=== PATIENT | female | born 1985 | race Caucasian/White ===

== ENCOUNTER 2016-02-29 17:13 | Inpatient (IN) | payer OTHER ==
[~2016-02-29] VITALS: Ht 157.5 cm; Wt 99.5 kg
[2016-02-29 17:58] VITALS: BMI 40.1
[2016-02-29 18:03] VITALS: Ht 157.5 cm; Wt 99.5 kg
[2016-02-29 18:55] LABS: HEMATOCRIT 34.3 % (37-47); MEAN CELL VOLUME 89.3 fL (80-100); MEAN CORPUSCULAR HGB CONC 34.7 g/dl (32-36); MEAN PLATELET VOLUME 9.9 fL (7.4-10.4); PLATELET COUNT 219 K/uL (130-400); RED BLOOD COUNT 3.84 M/uL (4.2-5.4); WHITE BLOOD COUNT 7.78 K/uL (4.8-10.8)
[2016-02-29 19:01] LABS: URINE APPEARANCE CLOUDY (CLEAR); URINE BILIRUBIN NEG (NEG); URINE COLOR YELLOW; URINE EPITHELIAL CELL AUTO >30 /lpf (0-5); URINE NITRITE NEG (NEG); URINE PH 6.5 (4.5-7.5); URINE SPECIFIC GRAVITY 1.026 (1.000-1.030); UROBILINOGEN NEG (NEG)
[2016-02-29 19:04] LABS: MANUAL MICROSCOPIC REQUIRED? NO; REVIEW REQ? NO
[2016-02-29 19:05] LABS: INR 0.9 (0.9-1.1); PARTIAL THROMBOPLASTIN RATIO 0.9; PROTHROMBIN TIME (PATIENT) 9.5 SECONDS (9.0-12.0)
[2016-02-29] MEDS ORDERED: PRENTAB26 PO (19:10)
[2016-02-29 19:11] LABS: BUN/CREATININE RATIO 18.2 (10-20); CALCIUM 9.2 mg/dl (8.5-10.1); CREATININE 0.51 mg/dl (0.60-1.20); POTASSIUM 3.6 mmol/L (3.5-5.1)
[2016-02-29 19:13] LABS: BENZODIAZEPINE, URINE NEG (NEG); COCAINE,URINE NEG (NEG); PHENCYCLIDINE, URINE NEG (NEG)
[2016-02-29 19:14] LABS: ALB/GLOB RATIO 0.6 (0.9-2)
[2016-03-01] MEDS: LACTATED RINGER'S 1000ML 500 ML IV PRN ×2 (08:30→13:37)
[2016-03-01] MEDS: OXYTOCIN 30 UNITS/500ML NSS IV PRN ×2 (08:31→23:23)
[2016-03-01] MEDS ORDERED: EpHEDrine SULFATE INJ 50 MG/ML AMP ONE (12:51)
[2016-03-01] MEDS ORDERED: FENTANYL 2MCG/ML ROPIV 1.25MG/ML 100ML BAG EPI ONE (12:51)
[2016-03-01] MEDS ORDERED: BUPIVACAINE 0.25% 30 ML VIAL ONE (12:51)
[2016-03-01] MEDS ORDERED: FENTANYL CITRATE INJ 50 MCG/1 ML 2 ML VIAL ONE (12:52)
[2016-03-01] MEDS ORDERED: NALOXONE HCL INJ 1 MG in SODIUM CHLORIDE 0.9% 1000ML 1,000 ML IV PRN (13:12)
[2016-03-01] MEDS ORDERED: LACTATED RINGER'S 1000ML 500 ML IV PRN (13:12)
[2016-03-01] MEDS ORDERED: EpHEDrine SULFATE INJ 50 MG/ML AMP IV PRN (13:15)
[2016-03-01] MEDS ORDERED: ONDANSETRON INJ 2 MG/ML 2 ML VIAL IV PRN (13:15)
[2016-03-01] MEDS ORDERED: NALBUPHINE HCL INJ 10 MG/ML AMP IV PRN (13:15)
[2016-03-01] MEDS ORDERED: NALOXONE HCL INJ 0.4 MG/1 ML VIAL/CARP IV PRN (13:15)
[2016-03-01] MEDS ORDERED: DiphenhydrAMINE HCL 50 MG/ML VIAL IV PRN (13:15)
[2016-03-01] MEDS: FENTANYL 2MCG/ML ROPIV 1.25MG/ML 100ML BAG EPI PRN ×2 (13:38→15:03)
[2016-03-01] MEDS ORDERED: ACETAMINOPHEN 500 MG TAB PO STA (18:03)
[2016-03-01] MEDS ORDERED: LACTATED RINGER'S 1000ML 1,000 ML IV SCH (20:13)
[2016-03-01] MEDS ORDERED: SUPERCREAM 0.870 % 15GM JAR EXT PRN (23:30)
[2016-03-01] MEDS ORDERED: IBUPROFEN 600 MG TAB PO PRN (23:30)
[2016-03-01] MEDS ORDERED: HYDROCORTISONE ACETATE 25 MG SUPP PR PRN (23:30)
[2016-03-01] MEDS ORDERED: OXYCODONE/ACETAMINOPHEN 5-325 TAB PO PRN (23:30)
[2016-03-01] MEDS ORDERED: BENZOCAINE 20% AER SPR 82.5 GM CAN EXT PRN (23:30)
[2016-03-01] MEDS ORDERED: OXYTOCIN 30 UNITS/500ML NSS IV PRN (23:30)
[2016-03-01] MEDS ORDERED: LANOLIN OINT EXT PRN ×2 (23:30)
[2016-03-02 02:45] VITALS: BP 131/91; PULSE 102; TEMP 36.8
[2016-03-02 05:20] VITALS: BP 137/90; PULSE 99; TEMP 36.8
--- NOTE | 2016-03-02 06:25 | Progress Note ---
Subjective Mar 02, 2016. Subjective conversation w/ patient, physical exam Ambulation: ambulating normally Voiding: no voiding problems Passing Gas: No Diet Tolerance: Regular Diet Lochia: Small Feeding Type: Breast Feeding Pain: No complaints of pain this morning Review of Systems Constitutional: No chills, No fever Respiratory: No cough, No shortness of breath Cardiac: No chest pain Breast: No breast pain Abdomen: No nausea, No pain, No vomiting Female : No dysuria Objective Vital Signs Date Time Temp Pulse Resp B/P Pulse Ox O2 Delivery O2 Flow Rate FiO2 03/02/16 05:20 36.8 99 18 137/90 Room Air 03/02/16 02:45 36.8 102 18 131/91 Room Air 03/02/16 02:45 Room Air Physical Exam General Appearance: WELL-APPEARING, WD/WN, NO APPARENT DISTRESS Respiratory/Chest: lungs clear, no respiratory distress Cardiovascular: regular rate, rhythm, no gallop, no murmur Abdomen: normal bowel sounds, non tender, soft Fundus: Firm, Relation to Umbilicus (At umbilicus) Extremities: no calf tenderness Laboratory Results Last 24 Hours Test 03/01/16 21:10 03/02/16 04:44 Bedside Glucose 87 mg/dl Medications Current Inpatient Medications Medications (Trade) Dose Ordered Sig/Carlton Route Start Time Stop Time Status Last Admin Dose Admin Lactated Ringer's 500 ml @ 999 mls/hr Q31M PRN IV 03/01/16 07:50 03/31/16 07:49 03/01/16 13:37 999 MLS/HR Lactated Ringer's (Lr 1000ml) 1,000 ml @ 125 mls/hr Q8H IV 03/01/16 20:13 03/03/16 20:12 03/01/16 21:00 125 MLS/HR Oxytocin (Pitocin IV) 30 units UD PRN IV 03/01/16 23:30 03/31/16 23:29 Benzocaine (Dermoplast Aero Spr) 1 appln PRN PRN EXT 03/01/16 23:30 03/31/16 23:29 Cocaine HCl (Supercream 0.870% Cr) BID PRN EXT 03/01/16 23:30 03/15/16 23:29 Hydrocortisone Acetate (Anusol Hc Supp) 25 mg BID PRN ME 03/01/16 23:30 03/31/16 23:29 Lanolin (Lanolin Oint) PRN PRN EXT 03/01/16 23:30 03/31/16 23:29 Ibuprofen (Motrin Tab) 600 mg Q4H PRN PO 03/01/16 23:30 03/31/16 23:29 Oxycodone/ Acetaminophen (Percocet 5-325MG Tab) 1 tab Q4H PRN PO 03/01/16 23:30 03/15/16 23:29 Bisacodyl (Dulcolax Tab) 5 mg 20 PO 03/02/16 20:00 03/02/16 20:01 Docusate Sodium (coLACE CAP) 100 mg BID PO 03/02/16 08:00 04/01/16 07:59 Assessment and Plan Post- Day#: 1 Continue Routine Care: - Vital Signs reviewed and WNL (temp max 36.8) - Blood Type: B+, GBS- , Rubella Immune - Patient doing well clinically - Encourage Ambulation today - Pain well controlled with Motrin - Tolerating PO diet Resident Physician Supervision Note: I was present with Dr. Mathur during the history and exam. I discussed the case with the resident and agree with the findings and plan as documented in the note. Any exceptions or clarifications are listed here: PPD#1, feeling well. Denies headache/vision changes/RUQ pain. BP's 130's/90's. Continue routine care. Documented By: Eboni Hammer
--- NOTE | 2016-03-02 06:30 | Medical Student: [facility] ---
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 Patient is a 30 year old WF who delivered an infant male yesterday evening via with Dr. Hammer. She initially presented on 02/29/16 for evaluation of preeclampsia (BP was 150/90 and 2+ urine protein) and was told that she would be induced. She underwent pabon bulb placement in the uterus, and on 03/01/16 was induced with Pitocin. At 2300 she delivered a viable male Apgars 8/9. There were no complications. The patient feels well today and states she is not having any significant pain. She is having some difficulty with and keeping the infant awake long enough to feed. She has been tolerating a normal diet but has not passed gas or had a bowel movement. She has been ambulating and voiding. She says she has some mild vaginal leakage of blood. She was able to sleep some last night. She denies nausea, vomiting, chest pain, shortness of breath, or tenderness in her calves. The 's name is Chance. Subjective conversation w/ patient, physical exam, chart review, lab review Ambulation: ambulating normally Voiding: no voiding problems Passing Gas: No Diet Tolerance: Regular Diet Lochia: Moderate Feeding Type: Breast Feeding Review of Systems Constitutional: No fever Respiratory: No cough Cardiac: No chest pain Abdomen: No pain Female : No dysuria Objective Vital Signs Date Time Temp Pulse Resp B/P Pulse Ox O2 Delivery O2 Flow Rate FiO2 03/02/16 05:20 36.8 99 18 137/90 Room Air 03/02/16 02:45 36.8 102 18 131/91 Room Air 03/02/16 02:45 Room Air Physical Exam General Appearance: WELL-APPEARING, WD/WN, NO APPARENT DISTRESS Respiratory/Chest: chest non-tender, lungs clear, normal breath sounds Cardiovascular: regular rate, rhythm, no edema Fundus: Firm, Relation to Umbilicus (at umbilicus) Extremities: normal range of motion, non-tender, normal inspection, no pedal edema, no calf tenderness Laboratory Results Last 24 Hours Test 03/01/16 21:10 03/02/16 04:44 Bedside Glucose 87 mg/dl Last Resulted CBC 02/29/16 18:34 Last Resulted BMP 02/29/16 18:34 Medications Current Inpatient Medications Medications (Trade) Dose Ordered Sig/Carlton Route Start Time Stop Time Status Last Admin Dose Admin Lactated Ringer's 500 ml @ 999 mls/hr Q31M PRN IV 03/01/16 07:50 03/31/16 07:49 03/01/16 13:37 999 MLS/HR Lactated Ringer's (Lr 1000ml) 1,000 ml @ 125 mls/hr Q8H IV 03/01/16 20:13 03/03/16 20:12 03/01/16 21:00 125 MLS/HR Oxytocin (Pitocin IV) 30 units UD PRN IV 03/01/16 23:30 03/31/16 23:29 Benzocaine (Dermoplast Aero Spr) 1 appln PRN PRN EXT 03/01/16 23:30 03/31/16 23:29 Cocaine HCl (Supercream 0.870% Cr) BID PRN EXT 03/01/16 23:30 03/15/16 23:29 Hydrocortisone Acetate (Anusol Hc Supp) 25 mg BID PRN DC 03/01/16 23:30 03/31/16 23:29 Lanolin (Lanolin Oint) PRN PRN EXT 03/01/16 23:30 03/31/16 23:29 Ibuprofen (Motrin Tab) 600 mg Q4H PRN PO 03/01/16 23:30 03/31/16 23:29 Oxycodone/ Acetaminophen (Percocet 5-325MG Tab) 1 tab Q4H PRN PO 03/01/16 23:30 03/15/16 23:29 Bisacodyl (Dulcolax Tab) 5 mg 20 PO 03/02/16 20:00 03/02/16 20:01 Docusate Sodium (coLACE CAP) 100 mg BID PO 03/02/16 08:00 04/01/16 07:59 Assessment and Plan Post- Day Number: 1 Continue Routine Care: This is a 30 y/o WF who delivered a viable male on 03/01/16. Plan: Continue routine care. Encourage ambulation as patient is at risk of VTE in the post period. Continue diet as tolerated. The patient is not a Rhogam candidate as her blood type is B+. The patient is Rubella immune.
[2016-03-02 06:41] LABS: HEMATOCRIT 32.7 % (37-47)
--- NOTE | 2016-03-02 07:09 | DELIVERY SUMMARY ---
DATE OF OPERATION: 03/01/2016 DELIVERY SURGEON: Dr. Hammer. PRE-DELIVERY DIAGNOSIS: 1. 30-year-old at 38 weeks and 2 days. 2. Induction of labor secondary to preeclampsia. 3. Diet-controlled gestational diabetes. 4. History of THC use in early with negative testing upon admission. POST-DELIVERY DIAGNOSIS: Same. PROCEDURE: Spontaneous vaginal delivery and repair of first degree perineal tear and periclitoral laceration. COMPLICATIONS: None. ESTIMATED BLOOD LOSS: 300 mL. APGARS: 8 and 9. WEIGHT: Pending. DESCRIPTION OF DELIVERY: The patient progressed to complete with epidural analgesia and spontaneously delivered over an intact perineum a viable male in the RON position. The head delivered. No nuchal cord was noted. The anterior shoulder followed by the posterior shoulder followed by the body delivered spontaneously. The baby was warmed and dried and spontaneous cry was heard. The was placed on the mother's abdomen. The cord was doubly clamped and cut. A cord segment was retained for cord gas collection if needed. Cord blood was obtained. The placenta was delivered spontaneously intact with a 3-vessel cord. A marginal insertion of the cord was noted. Pitocin was given. The uterus became firm. The vagina and perineum were inspected and a right periclitoral tear in the labia minora was noted. Plain Lidocaine 1% was injected locally for anesthetic purposes. This was repaired with interrupted stitches of 3-0 Vicryl to reapproximate the tissue. Excellent hemostasis was noted. A first degree perineal laceration was reapproximated using a [id number] stitch. Again excellent hemostasis was noted with this. The uterus and vagina were swept of all clots and debris. All instrument, sponge and needle counts were correct x2 at the conclusion of the delivery. The patient and baby tolerated the delivery well and recovered in the room. I attest to the content of the Intraoperative Record and any orders documented therein. Any exceptions are noted below. MTDD
[2016-03-02 08:00] VITALS: BP 139/94; PULSE 106; TEMP 36.5
[2016-03-02] MEDS: DOCUSATE SODIUM 100 MG CAP PO SCH ×2 (08:26→19:53)
[2016-03-02 12:10] VITALS: BP 148/98; PULSE 112; TEMP 36.3
[2016-03-02 15:35] VITALS: BP 127/88; PULSE 98; TEMP 36.7
[2016-03-02 19:40] VITALS: BP 135/90; PULSE 108; TEMP 36.8
[2016-03-02] MEDS ORDERED: BISACODYL 5 MG TABEC PO SCH (20:00)
[2016-03-03] VITALS: BP 136/83; PULSE 90; TEMP 36.7
--- NOTE | 2016-03-03 06:35 | Progress Note ---
Subjective Mar 03, 2016. Subjective conversation w/ patient, physical exam Ambulation: ambulating normally Voiding: no voiding problems Passing Gas: Yes Diet Tolerance: Regular Diet Lochia: Small Feeding Type: Breast Feeding Pain: No pain reported Review of Systems Constitutional: No chills, No fever Respiratory: No cough, No shortness of breath Cardiac: No chest pain Breast: No breast pain Abdomen: No nausea, No pain, No vomiting Female : No dysuria Objective Vital Signs Date Time Temp Pulse Resp B/P Pulse Ox O2 Delivery O2 Flow Rate FiO2 03/03/16 00:00 Room Air 03/03/16 00:00 36.7 90 18 136/83 Room Air 03/02/16 19:40 36.8 108 18 135/90 Room Air 03/02/16 15:35 Room Air 03/02/16 15:35 36.7 98 20 127/88 Room Air 03/02/16 12:10 36.3 112 20 148/98 03/02/16 08:00 36.5 106 18 139/94 Physical Exam General Appearance: WELL-APPEARING, WD/WN, NO APPARENT DISTRESS Respiratory/Chest: lungs clear, no respiratory distress Cardiovascular: regular rate, rhythm, no gallop, no murmur Abdomen: normal bowel sounds, non tender, soft Fundus: Relation to Umbilicus (At umbilicus) Extremities: no calf tenderness Medications Current Inpatient Medications Medications (Trade) Dose Ordered Sig/Carlton Route Start Time Stop Time Status Last Admin Dose Admin Lactated Ringer's 500 ml @ 999 mls/hr Q31M PRN IV 03/01/16 07:50 03/31/16 07:49 03/01/16 13:37 999 MLS/HR Lactated Ringer's (Lr 1000ml) 1,000 ml @ 125 mls/hr Q8H IV 03/01/16 20:13 03/03/16 20:12 03/01/16 21:00 125 MLS/HR Oxytocin (Pitocin IV) 30 units UD PRN IV 03/01/16 23:30 03/31/16 23:29 Benzocaine (Dermoplast Aero Spr) 1 appln PRN PRN EXT 03/01/16 23:30 03/31/16 23:29 03/02/16 08:27 82.5 APPLN Cocaine HCl (Supercream 0.870% Cr) BID PRN EXT 03/01/16 23:30 03/15/16 23:29 Hydrocortisone Acetate (Anusol Hc Supp) [address] 03/01/16 23:30 03/31/16 23:29 Lanolin (Lanolin Oint) PRN PRN EXT 03/01/16 23:30 03/31/16 23:29 Ibuprofen (Motrin Tab) 600 mg Q4H PRN PO 03/01/16 23:30 03/31/16 23:29 Oxycodone/ Acetaminophen (Percocet 5-325MG Tab) 1 tab Q4H PRN PO 03/01/16 23:30 03/15/16 23:29 Docusate Sodium (coLACE CAP) 100 mg BID PO 03/02/16 08:00 04/01/16 07:59 03/02/16 19:53 100 MG Assessment and Plan Post- Day#: 2 Continue Routine Care: - Vital Signs reviewed and WNL (temp max 36.7) - Blood Type: B+, GBS- , Rubella Immune - Patient doing well clinically - Encourage Ambulation today - Pain well controlled with Motrin - Tolerating PO diet - Discharge today Resident Physician Supervision Note: I interviewed and examined the patient. Discussed with Dr. Mathur and agree with findings and plan as documented in the note. Any exceptions or clarifications are listed here: [None] Documented By: Rakesh Stephen
--- NOTE | 2016-03-03 06:37 | Discharge Instructions ---
Discharge Instructions Admission Reason for Admission: R/O Preeclampsia Discharge Discharge Diagnosis / Problem: Vaginal Delivery Discharge Goals Goal(s): Routine recovery after delivery Medications Continue Dispensed Medications: supercream, dermaplast, tucks, lansinoh Activity Recommendations Activity Limitations: per Instructions/Follow-up section . Instructions / Follow-Up Instructions / Follow-Up ACTIVITY RECOMMENDATIONS: * Gradual return to full activity over the next 2-3 weeks. * No lifting - nothing heavier than baby over the next 2-3 weeks. * Do not engage in vigorous exercise, sexual activity or sports until cleared by your physician. * Do not drive or operate any motorized equipment until cleared by your physician. * You may shower/bathe daily. MEDICATIONS: For discomfort or pain, you may use Acetaminophen (Tylenol), Ibuprofen (Advil), or Naproxen (Aleve) following the package directions. For constipation you may use Colace following the package directions. BREAST CARE: If you are not breast feeding: * Wear a supportive bra 24 hours a day for one to two weeks. * Avoid stimulating your breasts and nipples as much as possible during the first few weeks after delivery. * When taking a shower, have the warm water hit your back, not breasts. * When your breasts feel full, apply ice packs. Usually three to four times a day helps ease the discomfort. * Take a mild pain medication (Tylenol / Motrin) when you are uncomfortable. If breast feeding: * Use breast milk to lubricate nipples. Lansinoh cream may be used for sore nipples. You do not need to remove cream prior to breast feeding. If using a different brand of cream, check the label for directions regarding removal of cream prior to nursing. * Wear a supportive bra. * If having problems with breasts or breast feeding, call a decorating consultant or your health care provider. EPISIOTOMY CARE: After delivery, if you have an episiotomy (stitches), the following steps will ease discomfort and aid healing. * For the first 24 hours after delivery, place ice packs next to your episiotomy to help reduce swelling. * After the first 24 hour-period, sitz baths, either portable or in the tub, are suggested. A shower with a shower arm sprayed over the episiotomy may be comforting. * Марина care should be done after each voiding and bowel movement. Squirt warm water from a plastic bottle over the perineum (region of the body between the anus and urinary opening) and pat dry. * Use Dermoplast to ease discomfort. Shake container. [place] directly over the episiotomy. Place a Tucks on a clean sanitary pad next to your episiotomy. SPECIAL CARE INSTRUCTIONS: When you are discharged from the hospital, it is important for you to follow the instructions listed below: * During the first week at home, you should be able to care for yourself and your baby. In addition, the usual light household activities are encouraged. * Limit your activities to the way you feel. Do not try to clean the house or move furniture. Be sensible. * If you actively engage in sports and have done so up until the time of your delivery, you may resume these activities as soon as you feel able. This may take up to one month or even longer. Use good judgment. * Continue to take your vitamins for at least six weeks after the of your baby. * Your diet need not be limited unless you were on a special diet before your delivery. Breast-feeding mothers need around 2500 calories per day and at least 64-80 ounces of fluid per day (8 to 10 glasses). * You should eat foods from the four major food groups. Crash diets or fad diets are to be avoided. Eating lean meats, fresh fruits and vegetables, low-fat dairy products, high fiber foods and a regular exercise program, will help you get back to your pre- weight without putting your health at risk. * Constipation is sometimes a problem after delivery. Take a mild laxative as needed. If breast feeding, Milk of Magnesia is acceptable to use. You may use a suppository or Fleets enema if no episiotomy. * A daily shower or tub bath is suggested. Be sure to thoroughly and gently dry the perineum. * A bloody vaginal discharge will usually continue until around four weeks post . A small amount of bleeding may continue for as long as six weeks. Vaginal discharge changes from the bright red bleeding after delivery to pink then brownish and finally yellowish-pink before becoming white and disappearing. * Bleeding may increase with activity. Your first period may come in 4-8 weeks. If you are breast feeding, your period may be delayed even longer. * [place] (sex) can begin whenever both you and your partner feel comfortable and do not have any form of genital infection. It is recommended that you wait at least six weeks for internal and external healing to occur. If you have questions, please talk to your health care practitioner. A condom should be used to prevent infection and . * Foreplay, gentle intercourse and lubrication is very important the first several times to prevent pain. A water-based lubricant such as K-Y jelly or Astroglide may be used. * If you have RH negative blood and your baby is RH positive, you will receive RHOGAM by injection prior to discharge. The nurse will give you a card to keep with you that has the date and place that you received RHOGAM after delivery. * During your care, you had a Rubella screen done to check for the presence of rubella antibodies in your blood. If your test was negative, you will receive a Rubella vaccine prior to discharge. This vaccine may cause a fever, soreness at the injection site and flu-like symptoms. If these symptoms persist, notify your health care practitioner. is not advised for one month after a Rubella vaccine. * Verbalizes understanding of car seat law as reviewed with patient nursing. * Car Seat hand-out given and reviewed with patient by nursing. * Shaken baby information reviewed with patient by nursing. Call you doctor if: * Heavy bleeding (saturating several pads an hour) or passing clots the size of your fist. * A fever >101 degrees F (38.3 degrees C) on two occasions four hours apart and /or chills. * Unusual pain in the pelvic or vaginal areas. * "Baby Blues" lasting longer than two weeks. If you have any questions or concerns, call your health care practitioner at . FOLLOW UP VISIT: * Please call the office at to schedule a 6 week examination. It is important you keep this appointment. It is important for you to make arrangements for either yearly or twice yearly check-ups thereafter. Current Hospital Diet Patient's current hospital diet: Regular Diet Discharge Diet Recommended Diet: Regular Diet Pending Studies Studies pending at discharge: no Medical Emergencies . Who to Call and When: Medical Emergencies: If at any time you feel your situation is an emergency, please call 911 immediately. . Non-Emergent Contact Non-Emergency issues call your: Chief Mechanical Engineer . . "Provider Documentation" section prepared by Miguelito Mathur. VTE Core Measure Inpt VTE Proph given/why not?: Treatment not indicated
[2016-03-03 08:40] VITALS: BP 126/85; PULSE 89; TEMP 36.8; O2SAT 97
[2016-03-03] MEDS: DOCUSATE SODIUM 100 MG CAP PO SCH (09:04)
[2016-03-03 14:50] VITALS: BP_DIAS 85; PULSE 89; TEMP 36.8
== END 2016-03-03 14:50 | disposition home or self-care (01) | DRG 775 ==
LOC: C.LD 17:13 → C.OPB 17:13 → C.LD 20:17 → C.OBG 03-02 04:48
PROVIDERS: ADMIT Obstetrics & Gynecology; ATTEND Obstetrics & Gynecology
PROC: 0HQ9XZZ Repair Perineum Skin, External Approach (ICD-10-PCS; principal; 2016-03-01)
PROC: 10E0XZZ Delivery of Products of Conception, External Approach (ICD-10-PCS; principal; 2016-03-01)
PROC: 0U7C7ZZ Dilation of Cervix, Via Natural or Artificial Opening (ICD-10-PCS; principal; 2016-03-01)
DX: O14.94 Unspecified pre-eclampsia, complicating childbirth (principal); O70.0 First degree perineal laceration during delivery; O24.420 Gestational diabetes mellitus in childbirth, diet controlled; O69.89X0 Labor and delivery complicated by other cord complications, not applicable or unspecified; Z37.0 Single live birth; Z3A.38 38 weeks gestation of pregnancy; Z87.891 Personal history of nicotine dependence

== ENCOUNTER → 2017-09-24 | Outpatient (CLI) | payer OTHER ==
[~2017-09-24] MED LIST: PRENTAB26 PO
== END | disposition home or self-care (01) ==
LOC: C.LAB1850 11:04
PROVIDERS: ATTEND Obstetrics & Gynecology
DX: O24.419 Gestational diabetes mellitus in pregnancy, unspecified control (principal)

== ENCOUNTER 2018-03-05 08:08 | Inpatient (IN) ==
[2018-03-05] MEDS ORDERED: OXYTOCIN 30 UNITS/500 ML BAG IV PRN ×2 (12:43)
[2018-03-05] MEDS ORDERED: LACTATED RINGER'S 1,000 ML IV PRN ×3 (12:43→21:40)
[2018-03-05] MEDS ORDERED: PENICILLIN G POTASSIUM 6 MU in DEXTROSE 5% 250 ML IV ONE (13:00)
[2018-03-05 13:07] LABS: Hematocrit (blood only) 32.4 % (37-47); Hemoglobin 11.1 g/dL (12.0-16.0); Mean Corpuscular Volume 88.5 fL (80-100); Mean Platelet Volume 9.2 fL (7.4-10.4); Platelet Count 180 K/uL (130-400); RDW Coefficient of Variation 13.3 % (11.5-14.5); RDW Standard Deviation 42.3 fL (36.4-46.3); Red Blood Count 3.66 M/uL (4.2-5.4)
[2018-03-05 13:08] LABS: Mean Corpuscular Hgb Conc 34.3 g/dL (32-36)
[2018-03-05] MEDS: LACTATED RINGER'S 1,000 ML IV SCH ×2 (13:25→21:50)
[2018-03-05] MEDS ORDERED: INSULIN REGULAR 250 UNITS in SODIUM CHLORIDE 0.9% 247.5 ML IV PRN (13:37)
[2018-03-05] MEDS ORDERED: SODIUM CHLORIDE 0.9% 1000ML 1,000 ML IV PRN (13:37)
[2018-03-05] MEDS ORDERED: DEXTROSE 5% 1,000 ML IV SCH (13:45)
--- NOTE | 2018-03-05 14:42 | History & Physical Report ---
Date of Service March 05, 2018 Assessment & Plan (1) with 39 completed weeks gestation: fetus category one. plan pitocin induction. pcn for gbs. arom when indicated. epidural on demand. (2) Insulin controlled gestational diabetes mellitus (GDM) during : insulin protocol. History of Present Illness Chief Complaint: induction Primary Care Provider: NO PCP Patient is a 32yowf with iup at 39 weeks who presents to labor and delivery for induction for a2gdm. Patient notes no significant contractions, no vb, lof. Patient admitted to MJ use with a positive screen in the early . She denies any drug use currently. She is a gbs carrier. labs--B+/ab-/pap nl/ri/rprnr/hepb-/hiv-/gc/ct-/panorama neg/afp neg/gbs positive. Allergies Allergy/AdvReac Type Severity Reaction Status Date / Time No Known Allergies Allergy Verified 02/07/18 19:31 Home Medications Home Medications Medication Instructions Recorded Confirmed Type insulin NPH isoph U-100 human 30 units SUBCUT HS 02/07/18 03/05/18 History [Humulin N NPH U-100 Insulin] Patient History Medical History Anxiety Gestational diabetes Social History marital status: Single Current Living Situation: Significant Other Other Information That Helps Us Care for You: No Feels Safe at Home: Yes Safety Concerns: Feels Safe At This Time Smoking Status: Former smoker Smoking End Date: 2016 Hx Alcohol Use: No Hx Substance Use: Yes (QUIT WITH + HPT TEST) substance use type: marijuana Preferred Language: French Communication Ability: Effective OB History g1--03/14, , 6#7oz, 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
[2018-03-05 15:06] LABS: Amphetamines+Metham, Urine Neg (Neg); Barbiturates, Urine Neg (Neg); Benzodiazepine, Urine Neg (Neg); Cocaine, Urine Neg (Neg); MDMA (Ecstacy), Urine Neg (Neg); Methadone, Urine Neg (Neg); Opiate, Urine Neg (Neg); Phencyclidine, Urine Neg (Neg)
[2018-03-05] MEDS: PENICILLIN G POTASSIUM 3 MU in DEXTROSE 5% 100 ML IV PRN ×2 (17:35→22:05)
--- NOTE | 2018-03-05 18:08 | Labor Progress Brief Note ---
Date of Service March 05, 2018 Subjective noting some contractions. Assessment & Plan (1) with 39 completed weeks gestation: continue current management. fetus category one. (2) Insulin controlled gestational diabetes mellitus (GDM) during : continue insulin protocol. Physical Exam 2 Vital Signs (Past 24 Hours): Last Vital Signs Temp 36.6 C 03/05/18 13:39 Pulse 81 03/05/18 16:53 Resp 20 03/05/18 13:39 BP 121/77 03/05/18 16:53 Constitutional: WD/WN, vitals as above Genitourinary: cx--/-2 arom--clear toco--q2-5, pit at 9 efm--120s wtih mod variability, accels to 150s, no decels
[2018-03-05] MEDS ORDERED: BUPIVACAINE 0.25% 30 ML VIAL ONE (20:39)
[2018-03-05] MEDS ORDERED: fentaNYL 2MCG/ML ROPIV 1.25MG/ML 100 ML BAG EPI ONE (20:40)
[2018-03-05] MEDS ORDERED: fentaNYL citrate 100 MCG/2 ML VIAL ONE (20:40)
--- NOTE | 2018-03-05 21:39 | Anesthesiology Consultation ---
Date of Service March 05, 2018 Assessment & Plan (1) Encounter for pre-operative examination: Chart Review Chart Review: Patient NOT seen in Pre Admission Testing and Acceptable Risk for Labor Epidural Consults Requested none ASA ASA2 Proposed Anesthesia Anesthesia Type: Labor Epidural Risk / Benefits Reviewed With: PT / POA / Parent / Guardian, Accepts Plan and Informed Consent Obtained NPO Date Last Intake of Fluids: 03/05/18 Time Last Intake of Fluids: 21:38 Date Last Intake of Solids: 03/05/18 Time Last Intake of Solids: 11:00 History Height/Weight Height: 5 ft 2 in Weight: 93.44 kg Allergies Allergy/AdvReac Type Severity Reaction Status Date / Time No Known Allergies Allergy Verified 02/07/18 19:31 Medications Home Medications Medication Instructions Recorded Confirmed Last Taken insulin NPH isoph U-100 human 30 units SUBCUT HS 02/07/18 03/05/18 03/04/18 23: 00 [Humulin N NPH U-100 Insulin] Active Medications Generic Name Dose Route Start Last Admin Trade Name Freq PRN Reason Stop Dose Admin Lactated Ringer's 1,000 mls @ 999 mls/hr 03/05/18 12:43 03/05/18 20:53 Lr IV 04/04/18 12:42 999 mls/hr .Q1H1M PRN Administration (Pre-Anesthesia) Lactated Ringer's 1,000 mls @ 125 mls/hr 03/05/18 12:45 03/05/18 13:25 Lr IV 03/07/18 12:44 125 mls/hr .Q8H ABBY Administration Oxytocin 30 units in 500 mls @ 11 mls/hr 03/05/18 12:43 03/05/18 18:37 Pitocin IV 03/07/18 12:42 0.66 units/hr .Q24H PRN 11 mls/hr Labor Induction/Augmentation Titration Protocol 0.66 UNITS/HR Penicillin G Potassium 3 mu/ 106 mls @ 100 mls/hr 03/05/18 12:43 03/05/18 17: 35 Dextrose IV 03/15/18 12:42 100 mls/hr Q4H PRN Administration Give until delivery Dextrose 1,000 mls @ 100 mls/hr 03/05/18 13:45 03/05/18 20:32 D5w IV 04/04/18 13:44 100 mls/hr .Q10H ABBY Infusion Protocol Insulin Human Regular 250 250 mls @ 0.5 mls/hr 03/05/18 13:37 03/05/18 20:32 units/ Sodium Chloride IV 04/04/18 13:36 0.5 mls/hr Q24H PRN Infusion BSG 80mg/dL or above Protocol Per Protocol Past Medical History Medical History Anxiety Gestational diabetes Past Anesthesia History No Hx of Anesthesia Complications (No problems with prior epidural - no personal history of GA) and No Family Hx of Anesthesia Complications History of PONV No Motion Sickness Screening History of Motion Sickness: No Social History Smoking Status: Former smoker Do You Dip or Chew Tobacco: No Smoking End Date: 2016 Hx Alcohol Use: No Hx Substance Use: Yes (QUIT WITH + HPT TEST) substance use type: marijuana Exercise / Class Metabolic Activity II 4-5 Yardwork/Stairs/Walk up hill negative for CP - positive for SOB with 1 FOS Review of Systems Patient denies active symptoms of GERD. Patient denies numbness, tingling or weakness in his lower extremities. Patient denies history of abnormal bleeding or bleeding disorder. Patient denies active use of anticoagulants. Physical Exam Vital Signs Last Vital Signs Temp 37.2 C 03/05/18 18:57 Pulse 73 03/05/18 21:00 Resp 20 03/05/18 18:57 BP 139/91 03/05/18 20:06 Pulse Ox 96 03/05/18 21:00 Constitutional not obese (Gravid uterus) ENMT Mouth: no TMJ abnormality and oral opening not small Thyromental Distance: < 3.5 Finger Breadths Mallampati Class: I Neck normal visual inspection; neck extension not limited Respiratory normal respiratory effort Auscultation: lungs clear to auscultation bilaterally Cardiovascular Rate/Rhythm: regular rate and regular rhythm Heart Sounds: no murmur Psychiatric A+Ox3, euthymic affect Orientation: alert and oriented x 3 Testing Laboratory Results 03/05/18 12:52 03/05/18 03/05/18 03/05/18 20:30 19:30 18:31 POC Glucose 97 88 91 03/05/18 03/05/18 03/05/18 17:28 16:29 15:30 POC Glucose 76 84 104 H 03/05/18 14:15 POC Glucose 123 H
[2018-03-05] MEDS ORDERED: ePHEDrine sulfate 50 MG/ML AMP IV PRN (21:40)
[2018-03-05] MEDS ORDERED: NALOXONE HCL 1 MG in SODIUM CHLORIDE 0.9% 1000ML 1,000 ML IV PRN (21:40)
[2018-03-05] MEDS ORDERED: DiphenhydrAMINE HCL 50 MG/ML VIAL IV PRN (21:40)
[2018-03-05] MEDS ORDERED: NALBUPHINE HCL INJ 10 MG/ML AMP IV PRN (21:40)
[2018-03-05] MEDS ORDERED: ONDANSETRON INJ 2 MG/ML 2 ML VIAL IV PRN (21:40)
[2018-03-05] MEDS ORDERED: fentaNYL 2MCG/ML ROPIV 1.25MG/ML 100 ML BAG EPI PRN (21:40)
[2018-03-05] MEDS ORDERED: NALOXONE HCL 0.4 MG/1 ML VIAL/CARP IV PRN (21:40)
--- NOTE | 2018-03-05 22:11 | Labor Progress Brief Note ---
Date of Service March 05, 2018 Subjective comfortable after epidural Assessment & Plan (1) with 39 completed weeks gestation: continue current management as now in active labor. anticipate . fetus category two secondary to occasional variable but overall very reassuring. Physical Exam 2 Vital Signs (Past 24 Hours): Last Vital Signs Temp 36.7 C 03/05/18 21:03 Pulse 79 03/05/18 22:05 Resp 20 03/05/18 21:03 BP 124/69 03/05/18 21:53 Pulse Ox 97 03/05/18 22:05 Constitutional: WD/WN, vitals as above Genitourinary: cx--7/100/0 toco--q2-4 min, efm--120s wtih mod variability, small accels, occasional variable
[2018-03-05] MEDS ORDERED: GLUCOSE 10 TABS/TUBE PO PRN (22:28)
[2018-03-05] MEDS ORDERED: DEXTROSE 50% 50 ML SYRINGE IV PRN (22:28)
[2018-03-05] MEDS ORDERED: GLUCOSE 40% GEL 15 GM TUBE PO PRN (22:28)
[2018-03-05] MEDS ORDERED: CARBOHYDRATES FOR HYPOGLYCEMIA PO PRN (22:28)
[2018-03-05] MEDS ORDERED: GLUCAGON FOR INJ 1 MG VIAL IM PRN (22:28)
--- NOTE | 2018-03-06 00:54 | Anesthesia Procedure Note ---
Date of Service March 06, 2018 Anesthesia Post Epidural Note Vital Signs Vital Signs: Temp Pulse Resp BP Pulse Ox 03/06/18 00:50 99 H 138/70 03/06/18 00:37 96 H 135/75 03/06/18 00:35 91 H 134/70 03/06/18 00:20 96 H 144/81 H 03/06/18 00:10 112 H 96 03/06/18 00:07 159 H 88 L 03/06/18 00:05 124 H 89 L 03/06/18 00:00 122 H 97 03/05/18 23:57 96 H 134/70 03/05/18 23:56 37.0 C 03/05/18 23:55 99 H 96 03/05/18 23:54 94 H 94 03/05/18 23:50 103 H 96 03/05/18 23:45 95 H 96 03/05/18 23:40 83 96 03/05/18 23:39 84 139/75 03/05/18 23:35 90 96 03/05/18 23:30 85 96 03/05/18 23:25 90 96 03/05/18 23:23 81 132/73 03/05/18 23:20 86 97 03/05/18 23:15 108 H 96 03/05/18 23:10 96 H 96 03/05/18 23:08 89 125/76 03/05/18 23:05 100 H 96 03/05/18 23:00 90 96 03/05/18 22:55 90 97 03/05/18 22:50 36.4 C L 89 18 96 03/05/18 22:47 93 H 126/70 03/05/18 22:45 87 96 03/05/18 22:40 91 H 97 03/05/18 22:38 85 122/67 03/05/18 22:35 88 96 03/05/18 22:30 86 96 03/05/18 22:25 86 96 03/05/18 22:24 75 119/66 03/05/18 22:20 77 96 03/05/18 22:15 71 98 03/05/18 22:10 106 H 97 03/05/18 22:08 97 H 127/75 03/05/18 22:05 79 97 03/05/18 22:00 81 98 03/05/18 21:55 82 97 03/05/18 21:53 83 124/69 03/05/18 21:50 86 97 03/05/18 21:46 82 121/64 03/05/18 21:45 80 98 03/05/18 21:44 83 117/60 03/05/18 21:42 76 123/62 03/05/18 21:40 83 129/64 98 03/05/18 21:38 78 133/61 03/05/18 21:36 80 118/59 L 03/05/18 21:35 85 97 03/05/18 21:34 81 120/63 03/05/18 21:32 85 125/65 03/05/18 21:30 86 118/65 96 03/05/18 21:28 84 120/66 03/05/18 21:26 85 128/73 89 L 03/05/18 21:25 80 97 03/05/18 21:24 88 166/79 H 03/05/18 21:22 84 148/89 H 03/05/18 21:20 94 H 143/85 H 97 03/05/18 21:15 110 H 97 03/05/18 21:10 87 97 03/05/18 21:05 102 H 96 03/05/18 21:03 36.7 C 64 20 162/83 H 94 03/05/18 21:00 73 96 03/05/18 20:55 93 H 98 03/05/18 20:50 103 H 99 03/05/18 20:06 82 139/91 03/05/18 18:57 37.2 C 79 20 142/97 H 03/05/18 18:55 96 H 141/102 H 03/05/18 16:53 81 121/77 03/05/18 15:52 85 135/80 03/05/18 15:06 83 126/75 03/05/18 13:39 36.6 C 20 Notes Mental Status: alert / awake / arousable and participated in evaluation Nausea / Vomiting: adequately controlled Pain: adequately controlled Airway Patency, RR, SpO2: stable & adequate BP & HR: stable & adequate Hydration State: stable & adequate Neuraxial Anesthesia: was administered and sensory block is resolving Anesthetic Complications: no major complications apparent and Pt Satisfied with anesthetic care Epidural: Removed without complications and With tip intact Notes: Neurologically intact. Patient denies headache and is low risk for development of PDPH.
--- NOTE | 2018-03-06 01:52 | Delivery Summary ---
DATE OF OPERATION: 03/06/2018 PREOPERATIVE DIAGNOSES: 1. Intrauterine at 39 weeks. 2. Insulin-requiring gestational diabetes. 3. Group B streptococcus positive. POSTOPERATIVE DIAGNOSES: 1. Intrauterine at 39 weeks. 2. Insulin-requiring gestational diabetes. 3. Group B streptococcus positive. PROCEDURES: 1. Penicillin for GBS prophylaxis. 2. Pitocin augmentation. 3. Amniotomy. 4. Epidural. 5. Normal spontaneous vaginal delivery. SURGEON: Moraima Massey MD ANESTHESIA: Epidural. ESTIMATED BLOOD LOSS: 200 mL DESCRIPTION OF PROCEDURE: The patient presents to labor and delivery for induction of labor at 39 weeks for insulin-requiring gestational diabetes. She was admitted. She was GBS positive and underwent penicillin prophylaxis. Her sugars were managed under the intrapartum insulin protocol. She began the day 3/50%. She underwent Pitocin augmentation and then when she got into a good contraction pattern, she underwent amniotomy for clear fluid. She progressed to 5+ cm, desired an epidural anesthetic, which was placed. She then progressed to complete, complete +2 station, pushed over approximately 2-3 contractions to deliver a viable female in ISAIAH presentation. There was no nuchal cord. The anterior shoulder and rest of the body were then delivered. The infant was vigorous. The nose and mouth were bulb suctioned. The was placed on the maternal abdomen for drying and attention. The cord was clamped and cut at 3 minutes of life. Cord blood was obtained. Placenta was delivered spontaneously intact with a 3-vessel cord. Cervix, sulci, and rectum were found to be intact. Hemostasis was obtained with dilute Pitocin and fundal massage. Apgars 8 and 9. Mother and baby doing well at the end of the delivery. I attest to the content of the Intraoperative Record and any orders documented therein. Any exceptions are noted below. MTDD
[2018-03-06] MEDS ORDERED: ACETAMINOPHEN 325 MG TAB PO PRN (02:03)
[2018-03-06] MEDS ORDERED: IBUPROFEN 600 MG TAB PO PRN (02:03)
[2018-03-06] MEDS ORDERED: OXYTOCIN 30 UNITS/500 ML BAG IV PRN (02:03)
[2018-03-06] MEDS ORDERED: SUPERCREAM 0.870% 15 GM JAR EXT PRN (02:03)
[2018-03-06] MEDS ORDERED: DIPHTHERIA/TETANUS/PERTUSSIS 0.5 ML SYR/VIAL IM ONE (02:03)
[2018-03-06] MEDS ORDERED: HYDROCORTISONE ACETATE 25 MG SUPP PR PRN (02:03)
[2018-03-06] MEDS ORDERED: ACETAMINOPHEN W/CODEINE #3 1 TAB PO PRN (02:03)
[2018-03-06] MEDS ORDERED: BENZOCAINE 20% AER SPR 82.5 GM CAN EXT PRN (02:03)
[2018-03-06] MEDS ORDERED: ACETAMINOPHEN 325 MG TAB ONE (02:08)
[2018-03-06] MEDS: DOCUSATE SODIUM 100 MG CAP PO SCH ×2 (09:08→20:23)
[2018-03-06] MEDS: PRENATAL VITAMIN 1 TAB PO SCH (09:08)
--- NOTE | 2018-03-07 07:10 | Obstetrical Progress Note ---
Date of Service <Bear Meyers DO - Last Filed: 03/07/18 07:10> March 07, 2018 Assessment & Plan <Bear Meyers DO - Last Filed: 03/07/18 07:10> (1) Vaginal delivery: 32 y/o, , vaginal delivery at 39 weeks, GBS+, B+, GDM, +THC during care lab - continue routine post- care (2) with 39 completed weeks gestation: Day #:: 1 Subjective <Bear Meyers - Last Filed: 03/07/18 07:10> Ambulation: ambulating normally Voiding: no voiding problems Passing Gas:: Yes Diet Tolerance:: regular diet Lochia:: Small Feeding Type:: breast feeding May states she is doing well this morning. No fever, chills, chest pain, shortness of breath, headaches. Physical Exam <Bear Meyers DO - Last Filed: 03/07/18 07:10> Vital Signs (Past 24 Hours) Last Vital Signs Temp 36.8 C 03/06/18 23:30 Pulse 72 03/06/18 23:30 Resp 18 03/06/18 23:30 BP 123/78 03/06/18 23:30 Pulse Ox 97 03/06/18 23:30 Constitutional WD/WN, vitals as above cooperative Respiratory normal respiratory effort, lungs clear to auscultation Cardiovascular Rate/Rhythm: regular rate and regular rhythm Heart Sounds: no murmur Gastrointestinal (Abdomen) Percussion/Palpation: abdomen soft; abdomen nontender fundus is firm, non-tender, 3cm below umbilicus Neurologic moves all extremities and awake Psychiatric A+Ox3, euthymic affect Results & Data <Bear Meyers DO Dunn Last Filed: 03/07/18 07:10> Laboratory Results Laboratory Results - last 24 hr 03/05/18 23:32 POC Glucose 112 H Medications Administered Docusate Sodium (Colace) 100 mg PO BID [facility] Stop: 04/05/18 08:59 Last Admin: 03/06/18 20:23 Dose: 100 mg Admin: 03/06/18 09:08 Dose: 100 mg Ibuprofen (Motrin) 600 mg PO Q4H PRN PRN Reason: Pain/SNEED/Cramping/Fever Stop: 04/05/18 02:02 Last Admin: 03/06/18 09:48 Dose: 600 mg Prenat Multivit/[place] [address]/Iron/Folic Ac ( Vitamin) 1 tab PO QAM ABBY Stop: 04/05/18 08:59 Last Admin: 03/06/18 09:08 Dose: 1 tab <Romelia Serrano MD, FACOG - Last Filed: 03/07/18 08:42> Co-Signing Physician Notes Resident Physician Supervision Note: I interviewed and examined the patient. Discussed with Dr. Bear Meyers and agree with findings and plan as documented in the note. Any exceptions or clarifications are listed here: [None] Documented By: Romelia Serrano MD, FACOG
[2018-03-07 07:53] LABS: Hematocrit (blood only) 29.8 % (37-47); Hemoglobin 9.7 g/dL (12.0-16.0)
[2018-03-07] MEDS: DOCUSATE SODIUM 100 MG CAP PO SCH (09:14)
[2018-03-07] MEDS: PRENATAL VITAMIN 1 TAB PO SCH (09:14)
== END 2018-03-07 15:04 | disposition home or self-care (01) | DRG 807 ==
LOC: 4S1 12:33 → 4S2 03-06 16:21

== ENCOUNTER 2020-11-10 07:50 | Inpatient (IN) ==
[2020-11-10] MEDS ORDERED: OXYTOCIN 30 UNITS/500 ML BAG IV PRN ×3 (08:03→20:21)
[2020-11-10] MEDS ORDERED: PENICILLIN G POTASSIUM 6 MU in DEXTROSE 5% 250 ML IV STA (08:03)
[2020-11-10 08:43] LABS: Amphetamines+Metham, Urine Neg (Neg); Barbiturates, Urine Neg (Neg); Benzodiazepine, Urine Neg (Neg); Cocaine, Urine Neg (Neg); MDMA (Ecstacy), Urine Neg (Neg); Methadone, Urine Neg (Neg); Opiate, Urine Neg (Neg); Phencyclidine, Urine Neg (Neg)
[2020-11-10 08:53] LABS: Hematocrit (blood only) 30.8 % (37-47); Hemoglobin 10.1 g/dL (12.0-16.0); Mean Corpuscular Hemoglobin 30.1 pg (25-34); Mean Corpuscular Hgb Conc 32.8 g/dL (32-36); Mean Corpuscular Volume 91.7 fL (80-100); Mean Platelet Volume 9.1 fL (7.4-10.4); Platelet Count 184 K/uL (130-400); RDW Coefficient of Variation 14.5 % (11.5-14.5); RDW Standard Deviation 47.6 fL (36.4-46.3); Red Blood Count 3.36 M/uL (4.2-5.4); White Blood Count 6.03 K/uL (4.8-10.8)
--- NOTE | 2020-11-10 09:38 | History & Physical Report ---
Date of Service November 10, 2020 Assessment & Plan (1) Insulin controlled gestational diabetes mellitus (GDM) during : Plan: Admit for IOL. Pitocin. Plan for AROM when able. EFM/toco. COVID swab per protocol. Q1h glucose checks. Patient agreeable. She plans for epidural. Admission and Anticipated Discharge Date Admission Date: November 10, 2020 History of Present Illness Chief Complaint: IOL for GDM Primary Care Provider: NO PCP 35yo @ 39 08/02, IOL for GDMA2. GDM on insulin (10/29/20) *Wkly NSTs @32wks and Twice wkly @36wks *Serial growth US @28wks *Deliver by EDC- IOL 11/10/20 AMA Weekly NST's @ 36 weeks Hx preeclampsia with first - initial preE labs with NOB - 24h urine protein - 88 - Rec start 81mg ASA after 12w UDS + Marijuana *UDS on admission to L&D Polyhydramnios 09/17 -weekly NSTs at dx -weekly DVPs at dx -MFM if DVP > 16 GBS positive Allergies Allergy/AdvReac Type Severity Reaction Status Date / Time No Known Allergies Allergy Verified 11/09/20 11:13 Home Medications Medication Instructions Recorded Confirmed Type acetone (urine) test (Ketone Urine #50 ea 06/04/20 11/09/20 Rx Test) blood sugar diagnostic (OneTouch #150 ea 06/04/20 11/09/20 Rx Verio test strips) lancets 33 gauge (OneTouch Delica #150 ea 06/04/20 11/09/20 Rx Lancets) aspirin [Baby Aspirin] PO DAILY 06/25/20 11/09/20 History insulin NPH isoph U-100 human 100 10 unit SUBCUT QPM #10 ml 10/18/20 11/09/20 Rx unit/mL subcutaneous suspension (Novolin N NPH U-100 Insulin isophane) insulin syringe-needle U-100 0.5 #100 ea 10/18/20 11/09/20 Rx mL 31 gauge x 5/16" (BD Insulin Syringe Ultra-Fine) Patient History Medical History (Updated 10/18/20 @ 15:03 by Lucina Sheth, EMY, LDN, CDE) Anxiety Encounter for pre-operative examination Gestational diabetes History of chicken pox Positive urine drug screen Preeclampsia with 38 completed weeks gestation with 39 completed weeks gestation Vaginal delivery Surgical History (Updated 03/26/20 @ 10:53 by Jennifer King) No history of previous surgery Family History (Updated 03/26/20 @ 10:55 by Jennifer King) Grandfather (Maternal) Diabetes Father Heart disease Grandfather (Paternal) Heart disease Denies family history of Ovarian cancer Breast cancer Colorectal cancer Social History (Updated 03/26/20 @ 10:56 by Jennifer King) Smoking Status: Former smoker Hx Alcohol Use: No Hx Substance Use: Yes (QUIT WITH + HPT TEST) Preferred Language: Slovenian Communication Ability: Effective marital status: Single marital status details: Chance Archer (40) Current Living Situation: Alone and Significant Other Current Living Situation Comment: lives with fob, 2 children, dog, cat-fob changing litter current occupational status: unemployed How many Children do You have: 2 Feels Safe at Home: Yes Assistive Devices: None Review of Systems All systems reviewed & are unremarkable except as noted in HPI & below Physical Exam Constitutional: WD/WN, vitals as above Respiratory: normal respiratory effort, lungs clear to auscultation no respiratory distress Cardiovascular: Rate/Rhythm: regular rate and regular rhythm Gastrointestinal (Abdomen): Inspection/Auscultation: abdomen normal to inspection Percussion/Palpation: abdomen soft; abdomen nontender Gravid. No s/s chorio or abruption. Skin: no rashes, warm and dry Psychiatric: A+Ox3, euthymic affect Results & Data ([facility]) Vital Signs (Past 12 Hours) Vital Signs Temp Pulse Resp BP Pulse Ox 11/10/20 08:45 92 H 98 11/10/20 08:40 98 H 98 11/10/20 08:35 97 H 97 11/10/20 08:30 85 96 11/10/20 08:24 36.5 C 90 20 126/66 Diagnostic Findings Limited bedside US: Cephalic, + movement, +cardiac activity, anterior placenta, adequate- appearing amniotic fluid Code Status & VTE Plan VTE Prophylaxis Plan VTE Prophylaxis will be ordered: No Monitoring External Monitor FHT Cat 1 Tocodynamometer rare Coding Level of Care Code None Diagnoses Insulin controlled gestational diabetes mellitus (GDM) during O24.414
[2020-11-10] MEDS: LACTATED RINGER'S 1,000 ML IV PRN ×2 (10:00→17:12)
[2020-11-10] MEDS: PENICILLIN G POTASSIUM 3 MU in DEXTROSE 5% 100 ML IV PRN ×2 (14:19→18:32)
[2020-11-10] MEDS ORDERED: SODIUM CHLORIDE 0.9% INJ 10 ML VIAL ONE (16:46)
[2020-11-10] MEDS ORDERED: ePHEDrine sulfate 50 MG/ML AMP ONE (16:46)
[2020-11-10] MEDS ORDERED: fentaNYL citrate 100 MCG/2 ML VIAL ONE (16:47)
[2020-11-10] MEDS ORDERED: fentaNYL 2MCG/ML ROPIVACAINE 1.25MG/ML 100 ML BAG EPI ONE (16:47)
[2020-11-10] MEDS ORDERED: BUPIVACAINE 0.25% 30 ML VIAL ONE (16:47)
--- NOTE | 2020-11-10 16:49 | Labor Progress Brief Note ---
Date of Service November 10, 2020 Subjective Doing well, does not yet desire epidural. FHT Cat 1 Dana Q 2 AROM clear /-2 Assessment & Plan Admission and Anticipated Discharge Date Admission Date: November 10, 2020 Results & Data ([facility]) Vital Signs (Past 12 Hours) Vital Signs Temp Pulse Resp BP Pulse Ox 11/10/20 16:15 36.6 C 18 11/10/20 15:15 18 11/10/20 15:05 18 11/10/20 14:29 78 129/81 11/10/20 12:10 68 117/69 11/10/20 10:35 75 127/76 11/10/20 09:15 36.6 C 20 11/10/20 08:45 92 H 98 11/10/20 08:40 98 H 98 11/10/20 08:35 97 H 97 11/10/20 08:30 85 96 11/10/20 08:24 36.5 C 90 20 126/66 Coding Level of Care Code None
--- NOTE | 2020-11-10 16:57 | Anesthesiology Consultation ---
Date of Service November 10, 2020 Assessment & Plan Chart Review Chart Review: Acceptable Risk for Surgery and Patient NOT seen in Pre Admission Testing Consults Requested none ASA ASA3 Proposed Anesthesia Anesthesia Type: Labor Epidural and CSE History Height/Weight Height: 5 ft 2 in Weight: 99.79 kg Allergies Allergy/AdvReac Type Severity Reaction Status Date / Time No Known Allergies Allergy Verified 11/10/20 11:17 Medications Home Medications Medication Instructions Recorded Confirmed Last Taken acetone (urine) test (Ketone Urine #50 ea 06/04/20 11/09/20 Unknown Test) blood sugar diagnostic (OneTouch #150 ea 06/04/20 11/09/20 Unknown Verio test strips) lancets 33 gauge (OneTouch Delica #150 ea 06/04/20 11/09/20 Unknown Lancets) insulin NPH isoph U-100 human 100 10 unit SUBCUT QPM #10 ml 10/18/20 11/10/20 11/09/20 22:00 unit/mL subcutaneous suspension (Novolin N NPH U-100 Insulin isophane) insulin syringe-needle U-100 0.5 #100 ea 10/18/20 11/09/20 Unknown mL 31 gauge x 5/16" (BD Insulin Syringe Ultra-Fine) Active Medications Generic Name Dose Route Start Last Admin Trade Name Freq PRN Reason Stop Dose Admin Oxytocin 30 units in 500 mls @ 15 mls/hr 11/10/20 08:03 11/10/20 15:18 Pitocin IV 11/12/20 08:02 0.9 units/hr .Q24H PRN 15 mls/hr Labor Induction/Augmentation Titration Protocol 0.9 UNITS/HR Lactated Ringer's 1,000 mls @ 125 mls/hr 11/10/20 08:03 11/10/20 14:20 Lr IV 11/12/20 08:02 0 mls/hr .Q8H PRN Infusion L&D Protocol Protocol Penicillin G Potassium 3 mu/ 106 mls @ 100 mls/hr 11/10/20 08:03 11/10/20 14:19 Dextrose IV 11/20/20 08:02 100 mls/hr Q4H PRN Administration Give until delivery Past Medical History Medical History Anxiety Encounter for pre-operative examination Gestational diabetes History of chicken pox Positive urine drug screen Preeclampsia with 38 completed weeks gestation with 39 completed weeks gestation Vaginal delivery Exercise / Class Metabolic Activity II 4-5 Yardwork/Stairs/Walk up hill Past Family History Family History Grandfather (Maternal) Diabetes Father Heart disease Grandfather (Paternal) Heart disease Denies family history of Ovarian cancer Breast cancer Colorectal cancer Past Surgical History Surgical History No history of previous surgery Past Anesthesia History No Hx of Anesthesia Complications and No Family Hx of Anesthesia Complications History of PONV No Hx of PONV and No Hx of Motion Sickness Social History Smoking Status: Former smoker Hx Alcohol Use: No Hx Substance Use: Yes substance use type: marijuana Last Used Substance Other:: USED THROUGHOUT ; LAST USED A "FEW WEEKS AGO." Physical Exam Vital Signs Last Vital Signs Temp 36.6 C 11/10/20 16:15 Pulse 78 11/10/20 14:29 Resp 18 11/10/20 16:15 BP 129/81 11/10/20 14:29 Pulse Ox 98 11/10/20 08:45 Testing Laboratory Results 11/10/20 08:33 11/10/20 11/10/20 14:18 10:32 POC Glucose 81 98
[2020-11-10] MEDS ORDERED: diphenhydrAMINE 50 MG/ML VIAL IV PRN (17:26)
[2020-11-10] MEDS ORDERED: NALOXONE HCL 0.4 MG/1 ML VIAL/CARP IV PRN (17:26)
[2020-11-10] MEDS ORDERED: fentaNYL 2MCG/ML ROPIVACAINE 1.25MG/ML 100 ML BAG EPI PRN (17:26)
[2020-11-10] MEDS ORDERED: NALOXONE HCL 1 MG in SODIUM CHLORIDE 0.9% 1000ML 1,000 ML IV PRN (17:26)
[2020-11-10] MEDS ORDERED: PROMETHAZINE HCL 25 MG in SODIUM CHLORIDE 0.9% 50 ML IV PRN (17:26)
[2020-11-10] MEDS ORDERED: ePHEDrine sulfate 50 MG/ML AMP IV PRN (17:26)
[2020-11-10] MEDS ORDERED: ONDANSETRON INJ 2 MG/ML 2 ML VIAL IV PRN (17:26)
[2020-11-10] MEDS ORDERED: NALBUPHINE HCL INJ 10 MG/ML AMP IV PRN (17:26)
--- NOTE | 2020-11-10 20:15 | Delivery Summary ---
Vaginal Delivery Summary Date of Service November 10, 2020 Vaginal Delivery Summary [facility] Vaginal Delivery Summary: Pre-delivery diagnoses: 35yo @ 39 6/7, IOL for GDMA2, polyhydramnios, AMA Post-delivery diagnoses: same Procedure: spontaneous vaginal delivery Surgeon: Eboni Hammer DO Complications: none Findings: Viable male . Apgars: 8/9. Weight pending, please see nursery records. Estimated blood loss: 300ml Description of delivery: The patient progressed to complete with epidural anesthesia. She then began to push. She spontaneously vaginally delivered a viable from the cephalic presentation. The head delivered in LOP position. Nuchal cord x 1, easily reduced. The anterior shoulder delivered, followed by the posterior shoulder, followed by the body. The baby was placed on mother's abdomen and a spontaneous cry was heard. Delayed cord clamping was employed, and the cord was doubly clamped and cut. Cord blood was obtained. The placenta was delivered spontaneously intact with a 3-vessel cord. The uterus and vagina were swept of clots and debris. IV pitocin was given. The uterus became firm. The cervix, vagina, and perineum were inspected and no lacerations were noted. Excellent hemostasis was observed. The mother and baby are recovering in stable and good condition in the room. Sponge and instrument counts were correct x 2. Eboni Hammer DO [facility] Vaginal Delivery Charge Vaginal Delivery Codes: 54772 global code for the antepartum, delivery, and post- Delivery Type Details: [facility]
[2020-11-10] MEDS ORDERED: SUPERCREAM 0.870% 15 GM JAR EXT PRN (20:21)
[2020-11-10] MEDS ORDERED: HYDROCORTISONE ACETATE 25 MG SUPP PR PRN (20:21)
[2020-11-10] MEDS ORDERED: oxyCODONE/ACETAMINOPHEN 5mg/325mg TAB PO PRN (20:21)
[2020-11-10] MEDS ORDERED: DIPHTHERIA/TETANUS/PERTUSSIS 0.5 ML SYR/VIAL IM ONE (20:21)
[2020-11-10] MEDS ORDERED: BENZOCAINE 20% AER SPR 82.5 GM CAN EXT PRN (20:21)
[2020-11-10] MEDS ORDERED: bisacodyL 10 MG SUPP PR PRN (20:21)
[2020-11-10] MEDS ORDERED: ACETAMINOPHEN 325 MG TAB PO PRN (20:21)
--- NOTE | 2020-11-10 20:52 | Anesthesia Procedure Note ---
Date of Service November 10, 2020 Anesthesia Post Epidural Note Vital Signs Vital Signs: Temp Pulse Resp BP Pulse Ox 36.7 C 93 H 20 126/68 98 11/10/20 19:01 11/10/20 20:39 11/10/20 20:10 11/10/20 20:39 11/10/20 20:05 Pain Intensity Back: Pain Intensity: 0 Notes Mental Status: alert / awake / arousable Nausea / Vomiting: adequately controlled Pain: adequately controlled Airway Patency, RR, SpO2: stable & adequate BP & HR: stable & adequate Hydration State: stable & adequate Neuraxial Anesthesia: was administered and sensory block is resolving Anesthetic Complications: no major complications apparent Epidural: Removed without complications and With tip intact
[2020-11-10] MEDS: DOCUSATE SODIUM 100 MG CAP PO SCH (22:01)
[2020-11-11] MEDS: IBUPROFEN 600 MG TAB PO PRN ×3 (03:30→15:21)
[2020-11-11 06:43] LABS: Hemoglobin 9.7 g/dL (12.0-16.0)
[2020-11-11] MEDS ORDERED: PRENATAL VITAMIN 1 TAB PO SCH (08:00)
[2020-11-11] MEDS: DOCUSATE SODIUM 100 MG CAP PO SCH ×2 (08:30→19:26)
--- NOTE | 2020-11-11 08:30 | Obstetrical Progress Note ---
Date of Service November 11, 2020 Assessment & Plan (1) Encounter for care and examination after delivery: Plan: 35yo PPD 1 s/p . -Continue routine care -Vitals reviewed- HDS, afebrile -GBS+ adequately treated prior to delivery -Encourage ambulation, regular diet -Pain control with ibuprofen, acetaminophen PRN -Encourage -Hgb 9.7 -discharge likely today, f/u in 6 weeks with OB Admission and Anticipated Discharge Date Admission Date: November 10, 2020 Supervising Physician Co-Signing Physician Notes Resident Physician Supervision Note: I was present with Dr. Duron during the history and exam. I discussed the case with the resident and agree with the findings and plan as documented in the note. Any exceptions or clarifications are listed here: PPD#1 doing well, no concerns. Desires discharge. Reviewed DC instructions, followup in office 6w. Documented By: Eboni Hammer, DO Subjective PPD 1 s/p . Patient seen and examined at bedside. Reports no acute overnight events. Ambulating and voiding. Has not yet passed gas or stool. Regular diet w/o N/V. Bottle Feeding. Pain 0/10 with analgesic. Review of Systems Review of Systems: Denies fevers/chills. Denies dyspnea, cough. Denies chest pain. Denies breast pain or discharge. Denies dysuria. Denies headache. Denies back pain. Physical Exam Physical Exam: General: Alert, oriented, no acute distress Cardiac: Regular rate and rhythm, normal S1, S2. No murmurs appreciated. Respiratory: Clear to auscultation b/l with good air flow entry, symmetric chest rise and fall. No wheezes or crackles. No increased work of breathing or accessory muscle use Abdomen: Soft, nontender, nondistended. Fundus firm and palpable at umbilicus. No guarding or rebound. Skin: No rashes or lesions Extremities: Warm, dry, well-perfused with capillary refill <2s b/l. No lower extremity edema, erythema or swelling. Negative Eloina's sign b/l. Results & Data ([facility]) Vital Signs (Past 12 Hours) Vital Signs Temp Pulse Pulse Resp BP BP Pulse Ox 11/11/20 03:30 36.5 C 82 16 124/81 97 11/10/20 22:40 36.6 C 92 H 16 130/76 97 11/10/20 22:10 90 18 129/67 11/10/20 22:09 90 129/67 11/10/20 21:54 90 127/63 11/10/20 21:40 90 18 123/64 11/10/20 21:39 87 129/71 11/10/20 21:24 90 123/64 11/10/20 21:09 92 H 118/56 L 11/10/20 21:08 93 H 18 123/62 11/10/20 20:55 93 H 18 123/62 11/10/20 20:54 93 H 123/62 11/10/20 20:40 93 H 18 126/68 11/10/20 20:39 93 H 126/68 Resident Activity Tracking Resident Involvement: Resident Care Provided Care Provided: OB Delivery
[2020-11-11 17:16] VITALS: O2SAT 98
[2020-11-11 19:43] VITALS: BP 129/81; PULSE 76; TEMP 97.5
[2020-11-11] MEDS ORDERED: bisacodyL 5 MG TABEC PO SCH (20:00)
--- NOTE | 2020-11-18 15:24 | Coding Query ---
CODING QUERY To promote full compliance with coding requirements relating to patient care, provider participation is requested in all cases of data coder operator uncertainty. Please assist us with the question(s) below: Coding Question(s): The H&P documents, "UDS + Marijuana *UDS on admission to L&D" and the anesthesia consult documents, "substance use type: marijuana Last Used Substance Other:: USED THROUGHOUT ; LAST USED A "FEW WEEKS AGO.". Please specify below, in your clinical opinion. (x ) complicated by Marijuana use ( ) Not complicated by Marijuana use - this was just abnormal lab finding ( ) Other: Please Specify The drug screen was positive, and the patient reported use in , not likely a false positive. Physician's Response(s): Thank you Anamaria Prasad Principal Diagnosis: "that condition established after study, to be chiefly responsible for occasioning the admission of the patient to the hospital for care." Co-Existing Principal Diagnosis: "when two or more diagnoses equally meet the criteria for principal diagnosis as determined by the circumstances of admission, diagnostic work up, and/or therapy provided, and the Alphabetic Index, Tabular List, or another coding guideline does not provide sequencing direction, any one of the diagnoses may be sequenced first." "When the physician has documented what appears to be a current diagnosis in the body of the record, but has not included the diagnosis in the final diagnostic statement, the physician should be asked whether the diagnosis should be added." (Source [facility]oding [facility] 2 QTR90. p3-4) [facility]
== END 2020-11-11 20:55 | disposition home or self-care (01) | DRG 806 ==
LOC: 4S1 07:50 → 4S2 22:40

== ENCOUNTER 2022-05-29 07:29 | Inpatient (IN) ==
[2022-05-29] MEDS ORDERED: OXYTOCIN 30 UNITS/500 ML BAG IV PRN ×4 (08:02→18:22)
[2022-05-29] MEDS ORDERED: LIDOCAINE 1% LOCAL 20 ML VIAL INFIL PRN (08:02)
[2022-05-29] MEDS ORDERED: PENICILLIN G POTASSIUM 6 MU in DEXTROSE 5% 250 ML IV STA (08:11)
--- NOTE | 2022-05-29 08:17 | History & Physical Report ---
Date of Service May 29, 2022 Assessment & Plan (1) Encounter for induction of labor: (2) Gestational diabetes: (3) Elderly multigravida: (4) History of marijuana use: (5) History of pre-eclampsia in prior , currently : (6) Obesity affecting : Plan - Patient admitted to labor and delivery for initiation of medical induction of labor - Patient did not require Guo bulb placement (/-2 at last OB visit) - Patient without regular contractions, thus oxytocin augmentation of labor will be started per protocol - Once contractions are progressing, will consider ROM - Will anticipate epidural as contractions arise - Labs pending - BSG ordered - Patient GBS +, PCN ordered Admission and Anticipated Discharge Date Admission Date: May 29, 2022 History of Present Illness Chief Complaint: Induction Primary Care Provider: NO PCP Subjective: Sridevi is a 36 year old female currently 39 0/7 with JAKE 06/04/22 determined by US #1 who presents to L&D for elective induction of labor. Complications: GDM, AMA, Hx of Pre-E, BMI 35-39 pre- Reason for Induction/: Elective Movement: Active Fluid Loss/ROM: None Bloody show/discharge: None External FHT and uterine monitor: Category 1, tracing reactive, good FHT variability, random contraction Last OB appointment: 05/26, regular care [facility] [employer] Hx: No abnormal pap, no history of STI Labs: Blood Type: B+ Antibody Screen: Negative Hg/Hct (today): Pending WBC/Plt (today): Pending Rubella: Immune RPR: Non-reactive Gonorrhea: Negative Chlamydia: Negative HIV: Negative HbSAg: Negative GBS: Positive Cff-DNA: Low risk AFP: Negative ROS: - Denies fever, chills, sweats - Denies dyspnea or pleuritic pain - Denies chest pain, palpitations, or pressure - Denies breast pain - Denies dysuria - Denies headache or visual changes Allergies Allergy/AdvReac Type Severity Reaction Status Date / Time No Known Allergies Allergy Verified 05/29/22 08:34 Home Medications Medication Instructions Recorded Confirmed Type folic acid 1 tab PO 1XD 05/29/22 05/29/22 History Patient History Medical History Anxiety Encounter for care and examination after delivery Encounter for pre-operative examination Gestational diabetes History of chicken pox Insulin controlled gestational diabetes mellitus (GDM) during Polyhydramnios Positive urine drug screen Preeclampsia with 38 completed weeks gestation with 39 completed weeks gestation Vaginal delivery Surgical History No history of previous surgery Family History Grandfather (Maternal) Diabetes Father Heart disease Grandfather (Paternal) Heart disease Denies family history of Ovarian cancer Breast cancer Colorectal cancer Social History (Updated 12/02/21 @ 09:59 by Isis Hammond RN) Smoking Status: Former smoker Tobacco Type: Cigarettes Second Hand Exposure: No; Do You Dip or Chew Tobacco: No; Hx Alcohol Use: No Hx Substance Use: Yes Non-Prescribed Medications: Marijuana Last Used Substance: Days (ago) Last Used Substance Other:: yesterday - unprescribed Preferred Language: Guyanese Communication Ability: Effective Visual Impairment: No Limitations Hearing Ability: Normal Community Administrator Required: No Beliefs That Will Affect Care: None marital status: Life Partner marital status details: Chance Archer (42) [phone] Current Living Situation: Family and Significant Other Current Living Situation Comment: Pt lives w/ significant other Chance & kids Chance(6); Trisha(4), Say (1) 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 No acute distress. Cardiac: Regular rate and rhythm, no murmurs/rubs/gallops. Respiratory: Clear to auscultation bilaterally a/p, no wheezes/rales/rhonchi. No increased work of breathing. Symmetrical chest rise. No respiratory distress. Abdomen: Gravid; Position: Vertex by Jamaal Pelvic: ALFREDO per Dr. Massey (pending) Lower Extremities: No lower extremity edema or swelling. No deep calf pain. Eloina's negative bilaterally. Results & Data Vital Signs (Past 12 Hours) Vital Signs Pulse BP 05/29/22 08:06 68 145/82 H 05/29/22 08:01 67 154/79 H 05/29/22 07:56 92 H 179/90 H 05/29/22 07:51 69 151/90 H 05/29/22 07:49 70 138/85 05/29/22 07:47 68 201/81 H 05/29/22 07:39 68 167/93 H Code Status & VTE Plan VTE Prophylaxis Plan VTE Prophylaxis will be ordered: Yes Supervising Physician Co-Signing Physician Notes Resident Physician Supervision Note: I interviewed and examined the patient. Discussed with Dr. Figueroa and agree with findings and plan as documented in the note. Any exceptions or clarifications are listed here: Patient presents for elective induction. GDM, diet controlled, obesity. 3 previous vaginal deliveries the largest 8#15oz. cx --3/50/-3, bedside us cephalic. Plan pit induction, epidural, then arom. Anticipate vaginal delivery. BPS noted to be borderline today at admission. Will check labs. No s/s of pet. Monitor closely. Documented By: Moraima Massey MD, FACOG Resident Activity Tracking Resident Involvement: Resident Care Provided Care Provided: OB Delivery
[2022-05-29 08:39] LABS: Hematocrit (blood only) 31.1 % (37.0-47.0); Hemoglobin 10.5 g/dl (12.0-16.0); Mean Corpuscular Hemoglobin 29.7 pg (25.0-34.0); Mean Corpuscular Hgb Conc 33.8 g/dL (32.0-36.0); Mean Corpuscular Volume 87.9 fL (80.0-100.0); Mean Platelet Volume 9.6 fL (9.4-12.4); Platelet Count 209 K/uL (130-400); RDW Coefficient of Variation 13.2 % (11.5-14.5); Red Blood Count 3.54 M/uL (4.20-5.40); White Blood Count 5.96 K/ul (4.8-10.8)
[2022-05-29] MEDS: LACTATED RINGER'S 1,000 ML IV PRN ×3 (08:39→15:35)
[2022-05-29 10:01] LABS: Albumin Globulin Ratio 1.1 (0.9-2); Albumin Level 3.3 gm/dl (3.4-5.0); Bilirubin Direct 0.1 mg/dl (0-0.2); Bilirubin,Total 0.3 mg/dl (0.2-1.0); Calcium 8.9 mg/dl (8.6-10.3); Creatinine Clr Calc Pharmacy 182.3 ml/min; Est GFR (African American) 147.3 ml/min; Est GFR (Non-African American) 127.1 ml/min; Globulin 3.1 gm/dl (2.5-4.0); Potassium 3.4 mmol/L (3.5-5.1); Total Protein 6.4 gm/dl (6.0-8.3)
[2022-05-29] MEDS: PENICILLIN G POTASSIUM 3 MU in DEXTROSE 5% 100 ML IV SCH ×2 (12:56→16:59)
[2022-05-29] MEDS ORDERED: fentaNYL citrate PF 100 MCG/2 ML VIAL ONE (13:12)
[2022-05-29] MEDS ORDERED: fentaNYL 2MCG/ML ROPIVACAINE 1.25MG/ML 100 ML BAG EPI PRN (13:12)
[2022-05-29] MEDS ORDERED: diphenhydrAMINE 50 MG/ML VIAL IV PRN (13:12)
[2022-05-29] MEDS ORDERED: NALOXONE HCL 0.4 MG/1 ML VIAL/CARP IV PRN (13:12)
[2022-05-29] MEDS ORDERED: SODIUM CHLORIDE 0.9% PF INJ 10 ML VIAL ONE (13:12)
[2022-05-29] MEDS ORDERED: ePHEDrine sulfate 50 MG/ML AMP ONE (13:12)
[2022-05-29] MEDS ORDERED: NALBUPHINE HCL INJ 10 MG/ML AMP IV PRN (13:12)
[2022-05-29] MEDS ORDERED: NALOXONE HCL 1 MG in SODIUM CHLORIDE 0.9% 1000ML 1,000 ML IV PRN (13:12)
[2022-05-29] MEDS ORDERED: ePHEDrine sulfate 50 MG/ML AMP IV PRN (13:12)
--- NOTE | 2022-05-29 13:12 | Anesthesiology Consultation ---
Date of Service May 29, 2022 Assessment & Plan Chart Review Chart Review: Patient NOT seen in Pre Admission Testing and Acceptable Risk for Labor Epidural Consults Requested none History Height/Weight Height: 5 ft 2 in Weight: 99.337 kg Allergies Allergy/AdvReac Type Severity Reaction Status Date / Time No Known Allergies Allergy Verified 05/29/22 08:34 Medications Home Medications Medication Instructions Recorded Confirmed Last Taken folic acid 1 tab PO 1XD 05/29/22 05/29/22 05/28/22 0800 Active Medications Generic Name Dose Route Start Last Admin Trade Name Freq PRN Reason Stop Dose Admin Lactated Ringer's 1,000 mls @ 125 mls/hr 05/29/22 08:02 05/29/22 13:04 Lr IV 05/31/22 08:01 999 mls/hr .Q8H PRN Infusion L&D Protocol Protocol Penicillin G Potassium 3 mu/ 106 mls @ 100 mls/hr 05/29/22 08:15 05/29/22 12:56 Dextrose IV 06/08/22 08:14 100 mls/hr Q4H ABBY Administration Protocol Oxytocin 30 units in 500 mls @ 10 mls/hr 05/29/22 08:31 05/29/22 11:00 Pitocin IV 05/31/22 08:30 0.6 units/hr .Q24H PRN 10 mls/hr Labor Induction/Augmentation Titration Protocol 0.6 UNITS/HR Past Medical History Medical History (Updated 05/29/22 @ 13:12 by Andres Celis DO) Anxiety Encounter for care and examination after delivery Encounter for pre-operative examination Gestational diabetes History of chicken pox Insulin controlled gestational diabetes mellitus (GDM) during Polyhydramnios Positive urine drug screen Preeclampsia with 38 completed weeks gestation with 39 completed weeks gestation Vaginal delivery Past Family History Family History Grandfather (Maternal) Diabetes Father Heart disease Grandfather (Paternal) Heart disease Denies family history of Ovarian cancer Breast cancer Colorectal cancer Past Surgical History Surgical History No history of previous surgery Social History Smoking Status: Former smoker Do You Dip or Chew Tobacco: No Hx Alcohol Use: No Hx Substance Use: Yes substance use type: marijuana Last Used Substance: Days (ago) Last Used Substance Other:: yesterday - unprescribed Physical Exam Vital Signs Last Vital Signs Temp 97.7 F 05/29/22 11:04 Pulse 54 L 05/29/22 13:10 Resp 18 05/29/22 12:00 BP 161/84 H 05/29/22 13:10 O2 Del Method Room Air 05/29/22 08:09 Testing Laboratory Results 05/29/22 08:15 05/29/22 08:15 Blood Type B Positive 05/29/22 08:15 Antibody Screen NEGATIVE 05/29/22 08:15 05/29/22 05/29/22 05/29/22 13:07 11:56 11:07 POC Glucose 86 79 77 05/29/22 05/29/22 05/29/22 10:06 09:07 08:04 POC Glucose 125 H 99 97
[2022-05-29] MEDS ORDERED: LIDOCAINE 2%/EPINEPHRINE 1:200,000 20 ML PF ONE (13:13)
[2022-05-29] MEDS ORDERED: BUPIVACAINE 0.25% PF 30 ML VIAL ONE (13:13)
[2022-05-29] MEDS ORDERED: fentaNYL 2MCG/ML ROPIVACAINE 1.25MG/ML 100 ML BAG EPI ONE (13:13)
--- NOTE | 2022-05-29 15:00 | Labor Progress Brief Note ---
Date of Service May 29, 2022 Subjective comfortable after epidural Assessment & Plan (1) Encounter for induction of labor: Plan arom. fetus category one. confortable with epidural. Patient has no s/s of pet. Elevated pressures earlier without s/s of pet were most likely related to discomfort. Pressures much improved after epidural. Labs normal. Anticipate . Admission and Anticipated Discharge Date Admission Date: May 29, 2022 Physical Exam Physical Exam: cx--4-5/75/-2 toco--q2-4min efm--130s with mod variability, accels present, no decels arom--copious clear. Results & Data Vital Signs (Past 12 Hours) Vital Signs Temp Pulse Resp BP Pulse Ox O2 Del Method 05/29/22 08:09 36.9 C 18 Room Air 05/29/22 14:53 81 99 05/29/22 14:48 68 99 05/29/22 14:30 16 05/29/22 14:30 16 05/29/22 14:47 64 124/55 L 05/29/22 14:43 67 100 05/29/22 14:38 65 99 05/29/22 14:34 68 131/60 05/29/22 14:33 69 99 05/29/22 14:28 62 99 05/29/22 14:23 65 99 05/29/22 14:00 18 05/29/22 14:00 18 05/29/22 13:01 18 05/29/22 13:01 18 05/29/22 13:30 18 05/29/22 13:30 18 05/29/22 14:18 100 05/29/22 14:18 69 05/29/22 14:18 61 155/70 H 05/29/22 14:13 84 99 05/29/22 14:08 72 100 05/29/22 14:03 80 99 05/29/22 14:02 83 143/82 H 05/29/22 13:58 79 99 05/29/22 13:55 68 145/67 H 05/29/22 13:53 74 128/68 99 05/29/22 13:51 68 137/58 L 05/29/22 13:48 82 99 05/29/22 13:49 85 147/77 H 05/29/22 13:47 73 144/71 H 05/29/22 13:45 71 144/67 H 05/29/22 13:43 99 05/29/22 13:43 65 05/29/22 13:43 67 144/71 H 05/29/22 13:41 88 143/109 H 05/29/22 13:38 78 99 05/29/22 13:39 80 165/93 H 05/29/22 13:37 84 163/93 H 05/29/22 13:33 88 100 05/29/22 13:28 84 98 05/29/22 13:24 66 165/92 H 05/29/22 13:23 63 99 05/29/22 13:10 54 L 161/84 H 05/29/22 13:09 59 L 178/99 H 05/29/22 13:03 59 L 172/85 H 05/29/22 12:54 57 L 195/106 H 05/29/22 12:38 55 L 180/87 H 05/29/22 12:23 55 L 140/67 05/29/22 12:09 67 178/80 H 05/29/22 12:00 18 05/29/22 12:00 18 05/29/22 11:54 57 L 150/90 H 05/29/22 11:30 18 05/29/22 11:30 18 05/29/22 11:38 60 152/82 H 05/29/22 08:43 18 05/29/22 08:43 18 05/29/22 09:01 18 05/29/22 09:01 18 05/29/22 09:58 18 05/29/22 09:58 18 05/29/22 10:37 20 05/29/22 10:37 20 05/29/22 11:00 18 05/29/22 11:00 18 05/29/22 11:24 59 L 150/77 H 05/29/22 11:18 56 L 136/73 05/29/22 11:10 61 167/82 H 05/29/22 11:04 18 05/29/22 11:04 36.5 C 18 05/29/22 10:53 69 148/82 H 05/29/22 10:38 60 146/79 H 05/29/22 10:23 60 140/77 05/29/22 10:09 62 146/78 H 05/29/22 09:53 64 138/85 04/03/23 09:38 59 L 159/77 H 05/29/22 09:23 71 145/86 H 05/29/22 09:08 61 144/88 H 05/29/22 08:53 63 143/82 H 05/29/22 08:38 65 145/81 H 05/29/22 08:23 69 154/85 H 05/29/22 08:06 68 145/82 H 05/29/22 08:01 67 154/79 H 05/29/22 07:56 92 H 179/90 H 05/29/22 07:51 69 151/90 H 05/29/22 07:49 70 138/85 05/29/22 07:47 68 201/81 H 05/29/22 07:39 68 167/93 H Coding Level of Care Code None Diagnoses Encounter for induction of labor Z34.90
--- NOTE | 2022-05-29 16:54 | Labor Progress Brief Note ---
Date of Service May 29, 2022 Subjective comfortable Assessment & Plan (1) Encounter for induction of labor: Plan hand reduced. Will monitor closely. Overall reassuring category two strip. Anticipate . Admission and Anticipated Discharge Date Admission Date: May 29, 2022 Physical Exam Physical Exam: cx--on initial exam, could feel a hand in front of the head, this was then reduced easily, ?-1 toco--q2-4min efm--140s wtih mod variability, accels present, variable/early with contractions. Results & Data Vital Signs (Past 12 Hours) Vital Signs Temp Pulse Resp BP Pulse Ox O2 Del Method 05/29/22 08:09 36.9 C 18 Room Air 05/29/22 16:48 80 98 05/29/22 16:43 57 L 99 05/29/22 16:29 18 05/29/22 16:29 18 05/29/22 16:38 54 L 99 05/29/22 16:33 61 98 05/29/22 16:28 60 99 05/29/22 16:23 56 L 98 05/29/22 16:18 65 98 05/29/22 16:13 63 99 05/29/22 16:08 53 L 98 05/29/22 15:30 18 05/29/22 15:30 18 05/29/22 16:03 62 99 05/29/22 16:00 55 L 128/60 05/29/22 15:30 18 05/29/22 15:30 18 05/29/22 15:58 52 L 99 05/29/22 15:00 16 05/29/22 15:00 16 05/29/22 15:53 60 99 05/29/22 15:48 54 L 99 05/29/22 15:15 18 05/29/22 15:15 36.5 C 18 05/29/22 15:43 57 L 99 05/29/22 15:38 65 99 05/29/22 15:33 68 100 05/29/22 15:28 58 L 99 05/29/22 15:23 76 99 05/29/22 15:18 66 99 05/29/22 15:13 57 L 99 05/29/22 15:08 54 L 99 05/29/22 15:03 66 99 05/29/22 14:58 65 98 05/29/22 14:53 81 99 05/29/22 14:48 68 99 05/29/22 14:30 16 05/29/22 14:30 16 05/29/22 14:47 64 124/55 L 05/29/22 14:43 67 100 05/29/22 14:38 65 99 05/29/22 14:34 68 131/60 05/29/22 14:33 69 99 05/29/22 14:28 62 99 05/29/22 14:23 65 99 05/29/22 14:00 18 05/29/22 14:00 18 05/29/22 13:01 18 05/29/22 13:01 18 05/29/22 13:30 18 05/29/22 13:30 18 05/29/22 14:18 100 05/29/22 14:18 69 05/29/22 14:18 61 155/70 H 05/29/22 14:13 84 99 05/29/22 14:08 72 100 05/29/22 14:03 80 99 05/29/22 14:02 83 143/82 H 05/29/22 13:58 79 99 05/29/22 13:55 68 145/67 H 05/29/22 13:53 74 128/68 99 05/29/22 13:51 68 137/58 L 05/29/22 13:48 82 99 05/29/22 13:49 85 147/77 H 05/29/22 13:47 73 144/71 H 05/29/22 13:45 71 144/67 H 05/29/22 13:43 99 05/29/22 13:43 65 05/29/22 13:43 67 144/71 H 05/29/22 13:41 88 143/109 H 05/29/22 13:38 78 99 05/29/22 13:39 80 165/93 H 05/29/22 13:37 84 163/93 H 05/29/22 13:33 88 100 05/29/22 13:28 84 98 05/29/22 13:24 66 165/92 H 05/29/22 13:23 63 99 05/29/22 13:10 54 L 161/84 H 05/29/22 13:09 59 L 178/99 H 05/29/22 13:03 59 L 172/85 H 05/29/22 12:54 57 L 195/106 H 05/29/22 12:38 55 L 180/87 H 05/29/22 12:23 55 L 140/67 05/29/22 12:09 67 178/80 H 05/29/22 12:00 18 05/29/22 12:00 18 05/29/22 11:54 57 L 150/90 H 05/29/22 11:30 18 05/29/22 11:30 18 05/29/22 11:38 60 152/82 H 05/29/22 08:43 18 05/29/22 08:43 18 05/29/22 09:01 18 05/29/22 09:01 18 05/29/22 09:58 18 05/29/22 09:58 18 05/29/22 10:37 20 05/29/22 10:37 20 05/29/22 11:00 18 05/29/22 11:00 18 05/29/22 11:24 59 L 150/77 H 05/29/22 11:18 56 L 136/73 05/29/22 11:10 61 167/82 H 05/29/22 11:04 18 05/29/22 11:04 36.5 C 18 05/29/22 10:53 69 148/82 H 05/29/22 10:38 60 146/79 H 05/29/22 10:23 60 140/77 05/29/22 10:09 62 146/78 H 05/29/22 09:53 64 138/85 05/29/22 09:38 59 L 159/77 H 05/29/22 09:23 71 145/86 H 05/29/22 09:08 61 144/88 H 05/29/22 08:53 63 143/82 H 05/29/22 08:38 65 145/81 H 05/29/22 08:23 69 154/85 H 05/29/22 08:06 68 145/82 H 05/29/22 08:01 67 154/79 H 05/29/22 07:56 92 H 179/90 H 05/29/22 07:51 69 151/90 H 05/29/22 07:49 70 138/85 05/29/22 07:47 68 201/81 H 05/29/22 07:39 68 167/93 H Coding Level of Care Code None Diagnoses Encounter for induction of labor Z34.90
[2022-05-29] MEDS ORDERED: ACETAMINOPHEN 325 MG TAB PO PRN (18:22)
[2022-05-29] MEDS ORDERED: bisacodyL 10 MG SUPP PR PRN (18:22)
[2022-05-29] MEDS ORDERED: HYDROCORTISONE ACETATE 25 MG SUPP PR PRN (18:22)
[2022-05-29] MEDS ORDERED: oxyCODONE/ACETAMINOPHEN 5mg/325mg TAB PO PRN (18:22)
[2022-05-29] MEDS ORDERED: BENZOCAINE 20% AER SPR 82.5 GM CAN EXT PRN (18:22)
[2022-05-29] MEDS ORDERED: DIPHTHERIA/TETANUS/PERTUSSIS 0.5mL SYR/VIAL (Age 7+yrs) IM ONE (18:22)
--- NOTE | 2022-05-29 18:22 | Delivery Summary ---
Vaginal Delivery Summary Date of Service May 29, 2022 Vaginal Delivery Summary and 1st Degree LAC (bilateral labial, no perineal) Pre-operative Diagnosis: at 39 weeks desires elective induction Post-operative Diagnosis: same Procedure: pitocin induction epidural arom repair of bilateral labial lacerations EBL: 300cc Anesthesia: epidural Procedure: Patient presents to labor and delivery for elective induction. Started on pit, got epidural and then arom for copious clear fluid. When 7cm, there was a hand in front of the head and this was reduced without difficulty. The patient proceeded to c/c/+1. The patient pushed for two contractions to deliver a viable male in dop position. The rest of the infant was then delivered without difficulty. The baby was vigorous and placed on the maternal abdomen. The nose and mouth were bulb suctioned. Cord was clamped and cut at one minute of life. Cord blood and segment obtained. Placenta delivered spontaneous, intact with a three vessel cord. Cervix/sulci/rectum/perineum were intact. Small bilateral labial lacerations were repaired in the normal standard fashion. Hemostasis obtained with dilute pitocin and fundal massage. Apgars were 8/9. Mother and baby doing well at the end of the delivery. [facility] Vaginal Delivery Charge Delivery Type Details: and 1st Degree LAC (bilateral labial, no perineal)
--- NOTE | 2022-05-29 19:09 | Anesthesia Procedure Note ---
Date of Service May 29, 2022 Anesthesia Post Epidural Note Vital Signs Vital Signs: Temp Pulse Resp BP Pulse Ox O2 Del Method 98.4 F 58 L 18 138/71 99 Room Air 05/29/22 18:20 05/29/22 19:04 05/29/22 18:50 05/29/22 19:04 05/29/22 18:08 05/29/22 08:09 Pain Intensity Abdomen: Pain Intensity: 0 Notes Mental Status: alert / awake / arousable and participated in evaluation Nausea / Vomiting: adequately controlled Pain: adequately controlled Airway Patency, RR, SpO2: stable & adequate BP & HR: stable & adequate Hydration State: stable & adequate Neuraxial Anesthesia: was administered and sensory block is resolving Anesthetic Complications: no major complications apparent and Pt Satisfied with anesthetic care Epidural: Removed without complications and With tip intact
[2022-05-29 19:52] LABS: Amphetamines+Metham, Urine Neg (Neg); Barbiturates, Urine Neg (Neg); Benzodiazepine, Urine Neg (Neg); Cocaine, Urine Neg (Neg); MDMA (Ecstacy), Urine Neg (Neg); Methadone, Urine Neg (Neg); Opiate, Urine Neg (Neg); Phencyclidine, Urine Neg (Neg)
[2022-05-29] MEDS: IBUPROFEN 600 MG TAB PO PRN (19:54)
[2022-05-29] MEDS: DOCUSATE SODIUM 100 MG CAP PO SCH (20:42)
--- NOTE | 2022-05-30 06:20 | Obstetrical Progress Note ---
Date of Service May 30, 2022 Assessment & Plan (1) Encounter for care after hospital delivery: (2) Gestational diabetes: (3) Group B streptococcal infection during : Plan - Overall, feeling well and eating well today - Infant feeding going well without concern - Urinating and passing gas appropriately - Ambulating well in room - Pain controlled w/ Ibuprofen - Hgb 10.5 on 4.3 - BSG wnl - PCN received - Vitals stable and wnl - Routine PP care progressing well - Anticipate discharge @ 24-48 hours PP (wants to dc at 24 hours PP) - Recommending f/u outpatient in 6 weeks Admission and Anticipated Discharge Date Admission Date: May 29, 2022 Supervising Physician Co-Signing Physician Notes Resident Physician Supervision Note: I interviewed and examined the patient. Discussed with Dr. Figueroa and agree with findings and plan as documented in the note. Any exceptions or clarifications are listed here: Doing well. Some borderline blood pressures, but not severe and no s/s of pet. Plan d/c home. GBS positive and adequately treated. d/c instructions given. Documented By: Moraima Massey MD, FACOG Subjective Patient is a 36F who is PPD #1 following delivery at 39 0/7. She reports feeling well overall this morning. - Ambulation - well throughout room - Voiding/Guo - independent voids, no dysuria or pressure - Gas/Stool - passing gas, no bowel movement - Diet - regular, no nausea or emesis - Lochia - diminishing, light amount - Infant Feeding Type - bottle feeding - Pain Level - 0/10, controlled with Ibuprofen Review of Systems - Denies fever, chills, sweats - Denies shortness of breath, difficulty breathing, chest pain, palpitations, chest pressure. - Denies breast pain. - Denies dysuria. - Denies headache or changes in vision. Physical Exam Physical Exam: General: Alert, oriented. No acute distress. Cardiac: RRR, normal S1/S2, no murmurs/rubs/gallops. Respiratory: Non-labored, CTAB, no wheezes/rales/rhonchi. Symmetric chest rise. Abdomen: Soft, nontender, nondistended. Bowel sounds present. Uterus: Uterine fundus firm, palpable 2 cm below umbilicus. Lower Extremities: No lower extremity edema or swelling. No deep calf pain. Eloina's negative bilaterally. Results & Data Vital Signs (Past 12 Hours) Vital Signs Temp Pulse Pulse Resp BP BP Pulse Ox 05/30/22 02:54 36.6 C 62 18 138/82 99 05/29/22 22:56 36.5 C 69 20 147/90 H 97 05/29/22 20:40 36.6 C 66 18 134/79 98 05/29/22 18:50 18 05/29/22 18:35 16 05/29/22 18:20 36.9 C 18 05/29/22 20:19 79 18 142/79 H 05/29/22 20:04 65 139/82 05/29/22 19:49 77 18 139/84 05/29/22 19:35 59 L 139/75 05/29/22 19:20 64 18 132/70 05/29/22 19:04 58 L 18 138/71 05/29/22 18:50 60 133/70 05/29/22 18:35 62 144/75 H 05/29/22 18:20 63 149/77 H O2 Del Method 05/30/22 02:54 Room Air 05/29/22 22:56 Room Air 05/29/22 20:40 Room Air 05/29/22 18:50 05/29/22 18:35 05/29/22 18:20 05/29/22 20:19 05/29/22 20:04 05/29/22 19:49 05/29/22 19:35 05/29/22 19:20 05/29/22 19:04 05/29/22 18:50 05/29/22 18:35 05/29/22 18:20 Resident Activity Tracking Resident Involvement: Resident Care Provided Care Provided: OB Delivery
[2022-05-30 06:56] LABS: Hematocrit (blood only) 27.5 % (37.0-47.0); Hemoglobin 9.2 g/dl (12.0-16.0)
[2022-05-30] MEDS: DOCUSATE SODIUM 100 MG CAP PO SCH (08:00)
[2022-05-30] MEDS ORDERED: PRENATAL VITAMIN 1 TAB PO SCH (08:00)
[2022-05-30] MEDS: IBUPROFEN 600 MG TAB PO PRN (08:02)
[2022-05-30] MEDS ORDERED: bisacodyL 5 MG TABEC PO SCH (20:00)
[2022-06-01 12:02] LABS: Marijuana Quant, GCMS Urine 178 ng/mL (<5)
== END 2022-05-30 19:30 | disposition home or self-care (01) | DRG 807 ==
LOC: 4S1 07:29 → 4E2 20:44

== ENCOUNTER 2023-06-08 07:43 | Inpatient (IN) ==
[2023-06-08] MEDS ORDERED: OXYTOCIN 30 UNITS/NSS 30 UNITS/500 ML BAG IV PRN (07:47)
[2023-06-08] MEDS ORDERED: LIDOCAINE 1% LOCAL 20 ML VIAL INFIL PRN (07:47)
--- NOTE | 2023-06-08 08:14 | History & Physical Report ---
Date of Service June 08, 2023 Assessment & Plan (1) Encounter for induction of labor: (2) Gestational diabetes: (3) GBS (group B Streptococcus carrier), +RV culture, currently : Plan 37 y/o female currently at 39w 1d with an JAKE 06/14/23 as determined by LMP, who is here for IOL. Pitocin AROM as indicated Epidural prn Monitor heart tracing, category 1 GBS+, intrapartum PCN Q2h blood glucose checks Admission and Anticipated Discharge Date Admission Date: June 08, 2023 History of Present Illness Primary Care Provider: NO PCP 37 y/o female currently at 39w 1d with an JAKE 06/14/23 as determined by LMP, who is here for IOL. complicated by: GDM on insulin Daily Marijuana use for insomnia and nausea AMA Hx preeclampsia - ASA 81mg daily Obesity (BMI between 35-39 @ beginning of ) GBS Positive Had regular appointments with OB Denies Contractions + movement Denies Fluid loss Denies Vaginal bleeding External FHT and external uterine monitors used: Category 1 tracing OB Labs: Blood Type B Positive 11/07/22 Antibody Screen NEGATIVE 11/07/22 Hemoglobin 11.1 g/dl (12.0-16.0) L 03/22/23 Hematocrit 33.5 % (37.0-47.0) L 03/22/23 Mean Corpuscular Volume 84.4 fL (80.0-100.0) 11/07/22 Platelet Count 244 K/uL (130-400) 11/07/22 Rubella IgG Antibody Immune (Immune) 11/07/22 Rapid Plasma Reagin Nonreactive (Nonreactive) 11/07/22 Hepatitis B Surface Antigen Neg (Neg) 04/09/20 Hepatitis B Surface Antigen. NON-REACTIVE (NON-REACTIVE) 11/07/22 Hepatitis C Antibody (EIA) NON-REACTIVE (NON-REACTIVE) 11/07/22 HIV (1&2) Ab and P24 Ag, 4th Gener Neg (Neg) 04/09/20 HIV (1&2) Ag and Ab Confirmation NON-REACTIVE (NON-REACTIVE) 11/07/22 Maternal Serum Alpha Fetoprotein 24.0 ng/mL 12/29/22 OB Optional Labs: Chlamydia trachomatis RNA Not Detected (NotDetected) 11/07/22 Neisseria gonorrhoeae RNA Not Detected (NotDetected) 11/07/22 Alpha Fetoprotein Triple Screen SEE NOTE 12/29/22 Alpha Fetoprotein 31.2 NG/ML 09/24/17 Labs Reviewed: cfdna-low risk--mln Allergies Allergy/AdvReac Type Severity Reaction Status Date / Time No Known Allergies Allergy Verified 06/08/23 08:20 Home Medications Medication Instructions Recorded Confirmed Type acetone (urine) test (Ketone Urine #50 ea 12/10/22 06/07/23 Rx Test strips) blood sugar diagnostic (OneTouch #150 ea 12/10/22 06/07/23 Rx Verio test strips) blood-glucose meter (OneTouch #1 ea 12/10/22 06/07/23 Rx Verio Flex Meter) lancets 33 gauge (OneTouch Delica #150 ea 12/10/22 06/07/23 Rx Plus Lancet) insulin NPH isoph U-100 human 100 10 unit (0.1 mL) subcut QPM #15 mL 05/10/23 Rx unit/mL (3 mL) subcutaneous pen (Novolin N FlexPen) pen needle, diabetic 32 gauge x #50 ea 05/10/23 06/07/23 Rx 5/32" (BD Ultra-Fine Noreen Pen Needle) Patient History Medical History (Updated 06/08/23 @ 08:29 by Mendel Ivan DO) Encounter for induction of labor Insulin controlled gestational diabetes mellitus (GDM) during Group B streptococcal infection during Obesity affecting Encounter for care and examination after delivery Polyhydramnios History of marijuana use Positive urine drug screen Elderly multigravida History of chicken pox Vaginal delivery Encounter for pre-operative examination with 39 completed weeks gestation Anxiety Gestational diabetes with 38 completed weeks gestation Preeclampsia Surgical History No history of previous surgery Family History Grandfather (Maternal) Diabetes Father Heart disease Grandfather (Paternal) Heart disease Denies family history of Ovarian cancer Breast cancer Colorectal cancer Social History (Updated 10/27/22 @ 10:52 by Jennifer King) Smoking Status: Former smoker Tobacco Type: Cigarettes Second Hand Exposure: No; Do You Dip or Chew Tobacco: No; Tobacco Cessation Education Requested by Patient: No Hx Alcohol Use: No Hx Substance Use: Yes Non-Prescribed Medications: Marijuana Last Used Substance: Days (ago) Last Used Substance Other:: yesterday - unprescribed Preferred Language: Uzbek Communication Ability: Effective Visual Impairment: No Limitations Hearing Ability: Normal Tension Worker Required: No Beliefs That Will Affect Care: None marital status: Life Partner marital status details: kevan Archer (43) [phone] Current Living Situation: Spouse and Family Current Living Situation Comment: FOB and kids current occupational status: unemployed 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 Date GA wks Lbr Lgth wt Sex Type del Anes Place Del Prov ? Comment 03/01/16 38 11 6-7 M Epidu ral [facility] Dr. Hammer No GDM diet controlled, induced preeclampsia 03/06/18 39 9 7-13 F Epid ural [facility] Dr. Massey No GDM insulin, GBS+ 11/10/20 39 8-14 M Epidural [facility] Dr Hammer N GDM 05/29/22 39 7-5 M Epidural [facility] Dr. 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 Hammer Review of Systems denies chest pain or SOB denies fever/chills denies SNEED/changes in vision denies dysuria denies LE pain Physical Exam Physical Exam: General: Alert and oriented. No acute distress Cardiac: Regular rate and rhythm, no murmurs appreciated Respiratory: Lungs clear to auscultation bilaterally, No increased work of breathing Abdominal: Soft, non-tender, non-distended. Bowel sounds present. Gravid uterus. Extremities: No lower extremity edema, calves non-tender bilaterally FHT: Category 1, baseline rate 135, moderate variability, minimal contractions Code Status & VTE Plan VTE Prophylaxis Plan VTE Prophylaxis will be ordered: No Supervising Physician Co-Signing Physician Notes Resident Physician Supervision Note: I interviewed and examined the patient. Discussed with Dr. Armendariz and agree with findings and plan as documented in the note. Any exceptions or clarifications are listed here: with GDM who presents to labor and delivery for iol for insulin requiring GDM. Was 5cm in the office. exam today /-3/soft/mid. GBS positive--starting pcn. INtial blood sugars 90. Will continue to monitor hourly. Plan to start pitocin, arom when indicated. epidural on request. anticipate . Fetus category one. tonya. Documented By: Moraima Massey MD, FACOG Resident Activity Tracking Resident Involvement: Resident Care Provided Care Provided: OB Delivery
[2023-06-08 08:26] LABS: Hematocrit (blood only) 30.5 % (37.0-47.0); Hemoglobin 10.4 g/dl (12.0-16.0); Mean Corpuscular Hemoglobin 29.2 pg (25.0-34.0); Mean Corpuscular Hgb Conc 34.1 g/dL (32.0-36.0); Mean Corpuscular Volume 85.7 fL (80.0-100.0); Mean Platelet Volume 9.3 fL (9.4-12.4); Platelet Count 177 K/uL (130-400); RDW Coefficient of Variation 14.2 % (11.5-14.5); RDW Standard Deviation 44.1 fL (36.4-46.3); Red Blood Count 3.56 M/uL (4.20-5.40); White Blood Count 8.53 K/ul (4.8-10.8)
[2023-06-08] MEDS: LACTATED RINGER'S 1,000 ML IV PRN (08:35)
[2023-06-08] MEDS: PENICILLIN GK 6 MU in DEXTROSE 5% 250 ML IV STA (08:36)
[2023-06-08] MEDS: OXYTOCIN 30 UNITS/NSS 30 UNITS/500 ML BAG IV PRN (09:25)
[2023-06-08 10:04] LABS: Amphetamines+Metham, Urine Neg (Neg); Barbiturates, Urine Neg (Neg); Benzodiazepine, Urine Neg (Neg); Cocaine, Urine Neg (Neg); MDMA (Ecstacy), Urine Neg (Neg); Marijuana, Urine Pos (Neg); Methadone, Urine Neg (Neg); Opiate, Urine Neg (Neg); Phencyclidine, Urine Neg (Neg)
[2023-06-08] MEDS ORDERED: ePHEDrine sulfate 50 MG/ML AMP ONE (12:40)
[2023-06-08] MEDS ORDERED: fentaNYL citrate PF 100 MCG/2 ML VIAL ONE (12:40)
[2023-06-08] MEDS ORDERED: SODIUM CHLORIDE 0.9% PF INJ 10 ML VIAL ONE (12:41)
[2023-06-08] MEDS: PENICILLIN GK 3 MU in DEXTROSE 5% 100 ML IV PRN (12:45)
[2023-06-08] MEDS: LIDOCAINE 2%/EPINEPHRINE 1:200,000 20 ML PF ONE (13:24)
[2023-06-08] MEDS: BUPIVACAINE 0.25% PF 30 ML VIAL ONE (13:24)
[2023-06-08] MEDS: fentANYL 2 MCG/ML BUPIVacaine 0.125%-NSS 100ML BAG ONE (13:25)
[2023-06-08] MEDS ORDERED: ONDANSETRON INJ 2 MG/ML 2 ML VIAL IV PRN (13:30)
[2023-06-08] MEDS ORDERED: ROPIVACAINE 0.5% PF 5 MG/ML 20 ML VIAL EPI PRN (13:30)
[2023-06-08] MEDS ORDERED: diphenhydrAMINE 50 MG/ML VIAL IV PRN (13:30)
[2023-06-08] MEDS ORDERED: fentaNYL citrate PF 100 MCG/2 ML VIAL EPI PRN (13:30)
[2023-06-08] MEDS ORDERED: SODIUM CHLORIDE 0.9% PF INJ 10 ML VIAL EPI STA (13:30)
[2023-06-08] MEDS ORDERED: LIDOCAINE 2% MPF LOCAL 5 ML VIAL EPI PRN (13:30)
[2023-06-08] MEDS ORDERED: NALOXONE HCL 1 MG in SODIUM CHLORIDE 0.9% 1,000 ML IV PRN (13:30)
[2023-06-08] MEDS ORDERED: NALBUPHINE HCL 5 MG in SYRINGE 0 ML IV PRN (13:30)
[2023-06-08] MEDS ORDERED: ePHEDrine sulfate 50 MG/ML AMP IV PRN (13:30)
[2023-06-08] MEDS ORDERED: NALOXONE HCL 0.4 MG/1 ML VIAL/CARP IV PRN (13:30)
[2023-06-08] MEDS ORDERED: LIDOCAINE 2%/EPINEPHRINE 1:200,000 20 ML PF EPI STA (13:30)
[2023-06-08] MEDS ORDERED: SODIUM CHLORIDE 0.9% PF INJ 10 ML VIAL EPI PRN (13:30)
[2023-06-08] MEDS ORDERED: PROMETHAZINE HCL 6.25 MG in SODIUM CHLORIDE 0.9% 50 ML IV PRN (13:30)
[2023-06-08] MEDS ORDERED: fentaNYL citrate PF 100 MCG/2 ML VIAL EPI STA (13:30)
[2023-06-08] MEDS ORDERED: BUPIVACAINE 0.25% PF 30 ML VIAL EPI STA (13:30)
[2023-06-08] MEDS ORDERED: fentANYL 2 MCG/ML BUPIVacaine 0.125%-NSS 100ML BAG EPI PRN (13:30)
[2023-06-08] MEDS ORDERED: BUPIVACAINE 0.25% PF 30 ML VIAL EPI PRN (13:30)
--- NOTE | 2023-06-08 13:30 | Anesthesiology Consultation ---
Date of Service June 08, 2023 Assessment & Plan Chart Review Chart Review: Patient NOT seen in Pre Admission Testing and Acceptable Risk for Labor Epidural Consults Requested none ASA ASA2 Proposed Anesthesia Anesthesia Type: Labor Epidural Risk / Benefits Reviewed With: PT / POA / Parent / Guardian, Accepts Plan and Informed Consent Obtained History Height/Weight Height: 5 ft 2 in Weight: 100.244 kg Allergies Allergy/AdvReac Type Severity Reaction Status Date / Time No Known Allergies Allergy Verified 06/08/23 08:20 Medications Home Medications Medication Instructions Recorded Confirmed Last Taken acetone (urine) test (Ketone Urine #50 ea 12/10/22 06/07/23 Unknown Test strips) blood sugar diagnostic (OneTouch #150 ea 12/10/22 06/07/23 Unknown Verio test strips) blood-glucose meter (OneTouch #1 ea 12/10/22 06/07/23 Unknown Verio Flex Meter) lancets 33 gauge (OneTouch Delica #150 ea 12/10/22 06/07/23 Unknown Plus Lancet) insulin NPH isoph U-100 human 100 10 unit (0.1 mL) subcut QPM #15 mL 05/10/23 06/08/23 06/06/23 unit/mL (3 mL) subcutaneous pen (Novolin N FlexPen) pen needle, diabetic 32 gauge x #50 ea 05/10/23 06/07/23 Unknown " (BD Ultra-Fine Noreen Pen Needle) Active Medications Generic Name Dose Route Start Last Admin Trade Name Freq PRN Reason Stop Dose Admin Lactated Ringer's 1,000 mls @ 125 mls/hr 06/08/23 07:47 06/08/23 13:11 Lr IV 06/10/23 07:46 Infused .Q8H PRN Infusion L&D Protocol Protocol Penicillin G Potassium 3 mu/ 106 mls @ 100 mls/hr 06/08/23 12:00 06/08/23 12:45 Dextrose IV 06/18/23 11:59 100 mls/hr Q4H PRN Administration GBS(+) Until Delivery Oxytocin 30 units in 500 mls @ 9 mls/hr 06/08/23 09:12 06/08/23 11:45 Pitocin 30 Units/Nss IV 06/10/23 09:11 0.54 units/hr .Q24H PRN 9 mls/hr Labor Induction/Augmentation Titration Protocol 0.54 UNITS/HR Past Medical History Medical History (Updated 06/08/23 @ 08:29 by Mendel Ivan DO) Encounter for induction of labor Insulin controlled gestational diabetes mellitus (GDM) during Group B streptococcal infection during Obesity affecting Encounter for care and examination after delivery Polyhydramnios History of marijuana use Positive urine drug screen Elderly multigravida History of chicken pox Vaginal delivery Encounter for pre-operative examination with 39 completed weeks gestation Anxiety Gestational diabetes with 38 completed weeks gestation Preeclampsia Exercise / Class Metabolic Activity II 4-5 Yardwork/Stairs/Walk up hill Past Family History Family History Grandfather (Maternal) Diabetes Father Heart disease Grandfather (Paternal) Heart disease Denies family history of Ovarian cancer Breast cancer Colorectal cancer Past Surgical History Surgical History No history of previous surgery Past Anesthesia History No Hx of Anesthesia Complications and No Family Hx of Anesthesia Complications History of PONV No Hx of PONV and No Hx of Motion Sickness Social History Smoking Status: Former smoker Do You Dip or Chew Tobacco: No Hx Alcohol Use: No Hx Substance Use: Yes substance use type: marijuana Last Used Substance: Days (ago) Last Used Substance Other:: yesterday - unprescribed Physical Exam Vital Signs Last Vital Signs Temp 36.6 C 06/08/23 07:58 Pulse 84 06/08/23 13:27 Resp 18 06/08/23 07:58 BP 154/76 H 06/08/23 13:27 Pulse Ox 99 06/08/23 13:27 ENMT Mouth: no dentition abnormality Thyromental Distance: > or= 3.5 Finger Breadths Mallampati Class: II Neck normal visual inspection Respiratory normal respiratory effort Auscultation: lungs clear to auscultation bilaterally Cardiovascular Rate/Rhythm: regular rate and regular rhythm Psychiatric Orientation: alert Testing Laboratory Results 06/08/23 08:11 Blood Type B Positive 06/08/23 08:11 Antibody Screen NEGATIVE 06/08/23 08:11 06/08/23 06/08/23 12:50 08:35 POC Glucose 83 94
--- NOTE | 2023-06-08 14:46 | Labor Progress Brief Note ---
Date of Service June 08, 2023 Subjective pt now comfortable with epidural. pit at 11 Assessment & Plan (1) Encounter for induction of labor: Plan pt made aware of concerning findings on exam. will try to increase pit for better pattern and position change to see if cephalic which is close to pelvis can come into pelvis. alt is c/s now. risk of waiting and increasing pit is if pt srom's then hand presentation results in stat c/s. pt prefers to try to see if position change and use of pitocin can get the cephalic into pelvis. will plan reexam in 1hr. anesth made aware. Admission and Anticipated Discharge Date Admission Date: June 08, 2023 Physical Exam Constitutional: WD/WN, vitals as above Genitourinary: Manual OB Exam: + cervical dilation 5 cm, + cervical effacement 60% and + station (hand presentation on exam and cephalic to left. ) high OB Exam Monitor Tracing: + external FHT monitor used, + external uterine monitor used (q3-5 pit at 11), + category I and + normal FHT variability bedside us, cephalic to left Results & Data Vital Signs (Past 12 Hours) Vital Signs Temp Pulse Resp BP Pulse Ox 06/08/23 14:37 100 06/08/23 14:37 80 06/08/23 14:37 132/73 06/08/23 14:32 100 06/08/23 14:32 89 06/08/23 14:27 100 06/08/23 14:27 78 06/08/23 14:22 100 06/08/23 14:22 65 06/08/23 14:21 87 06/08/23 14:21 142/77 H 06/08/23 14:17 100 06/08/23 14:17 81 06/08/23 14:12 100 06/08/23 14:12 76 06/08/23 14:07 99 06/08/23 14:07 74 06/08/23 14:07 83 06/08/23 14:07 159/76 H 06/08/23 14:02 99 06/08/23 14:02 76 06/08/23 13:57 99 06/08/23 13:57 72 06/08/23 13:52 100 06/08/23 13:52 73 06/08/23 13:52 75 06/08/23 13:52 137/78 04/12/24 13:47 99 06/08/23 13:47 80 06/08/23 13:42 100 06/08/23 13:42 79 06/08/23 13:37 99 06/08/23 13:37 83 06/08/23 13:36 82 06/08/23 13:36 143/86 H 06/08/23 13:33 90 06/08/23 13:33 146/80 H 06/08/23 13:32 100 06/08/23 13:32 81 06/08/23 13:31 98.2 F 16 06/08/23 13:30 85 06/08/23 13:30 149/78 H 06/08/23 13:27 99 06/08/23 13:27 84 06/08/23 13:27 154/76 H 06/08/23 13:24 80 06/08/23 13:24 169/85 H 06/08/23 13:22 100 06/08/23 13:22 78 06/08/23 13:22 165/90 H 06/08/23 13:17 93 06/08/23 13:17 113 H 06/08/23 13:17 93 06/08/23 13:17 107 H 06/08/23 13:13 69 06/08/23 13:13 165/87 H 06/08/23 13:12 100 06/08/23 13:12 83 06/08/23 13:07 100 06/08/23 13:07 80 06/08/23 13:02 100 06/08/23 13:02 68 06/08/23 12:57 99 06/08/23 12:57 68 06/08/23 12:52 99 06/08/23 12:52 72 06/08/23 12:30 78 06/08/23 12:30 141/85 H 06/08/23 12:00 69 06/08/23 12:00 142/88 H 06/08/23 11:30 98.2 F 16 06/08/23 11:30 71 06/08/23 11:30 137/86 06/08/23 11:01 69 06/08/23 11:01 146/83 H 06/08/23 10:31 75 06/08/23 10:31 133/87 06/08/23 10:00 74 06/08/23 10:00 129/83 06/08/23 09:29 76 06/08/23 09:29 148/74 H 06/08/23 07:58 97.8 F 18 06/08/23 07:57 78 135/85 Coding Level of Care Code None Diagnoses Encounter for induction of labor Z34.90
--- NOTE | 2023-06-08 17:03 | Delivery Summary ---
Vaginal Delivery Summary Date of Service June 08, 2023 Vaginal Delivery Summary The patient dilated to complete and pushed to deliver a viable female infant Apgars 8 and 9 via over intact perineum. Mouth and nose bulb suctioned at perineum. Shoulders and body delivered with ease. Infant was vigorous and crying at . Cord clamped at 30 seconds of life and to maternal abdomen where the cord was then doubly clamped and cut. Placenta delivered spontaneously and intact, three-vessel cord. Hemostasis achieved with dilute pitocin and uterine massage. Cervix and sulci intact. EBL 300 cc. Mother and baby stable in recovery. [facility] Vaginal Delivery Charge Delivery Type Details:
[2023-06-08] MEDS ORDERED: OXYTOCIN 20 UNITS/LR 1,002 ML IV SCH (17:15)
--- NOTE | 2023-06-08 17:15 | Anesthesia Procedure Note ---
Date of Service June 08, 2023 Anesthesia Post Epidural Note Vital Signs Vital Signs: Temp Pulse Resp BP Pulse Ox 36.8 C 71 16 132/71 99 06/08/23 13:31 06/08/23 16:59 06/08/23 13:31 06/08/23 16:59 06/08/23 16:57 Notes Mental Status: alert / awake / arousable Nausea / Vomiting: adequately controlled Pain: adequately controlled Airway Patency, RR, SpO2: stable & adequate BP & HR: stable & adequate Hydration State: stable & adequate Neuraxial Anesthesia: was administered and sensory block is resolving Anesthetic Complications: no major complications apparent and Pt Satisfied with anesthetic care Epidural: Removed without complications and With tip intact
[2023-06-08] MEDS ORDERED: HYDROCORTISONE ACETATE 25 MG SUPP PR PRN (17:28)
[2023-06-08] MEDS ORDERED: ACETAMINOPHEN 325 MG TAB PO PRN (17:28)
[2023-06-08] MEDS ORDERED: bisacodyL 10 MG SUPP PR PRN (17:28)
[2023-06-08] MEDS ORDERED: oxyCODONE/ACETAMINOPHEN 5mg/325mg TAB PO PRN (17:28)
[2023-06-08] MEDS: OXYTOCIN 30 UNITS/1003ML LR IV ONE (17:39)
[2023-06-08] MEDS: IBUPROFEN 600 MG TAB PO PRN (19:32)
[2023-06-08] MEDS: BENZOCAINE 20% SPRY 85 APPLN/85 GM CAN EXT PRN (19:33)
[2023-06-08] MEDS ORDERED: SODIUM CHLORIDE 0.9% 250 ML IV PRN (20:04)
[2023-06-08] MEDS: DOCUSATE SODIUM 100 MG CAP PO SCH (21:07)
--- NOTE | 2023-06-09 07:12 | Obstetrical Progress Note ---
Date of Service <Mendel Ivan DO - Last Filed: 06/09/23 07:12> June 09, 2023 Assessment & Plan <Mendel Ivan DO - Last Filed: 06/09/23 07:12> (1) Encounter for assessment: Plan 37 y/o PPD#1: Eating well, voiding well, ambulating well Vitals reviewed, WNL Pain well controlled with Motrin Routine post care - OOB, ambulation, diet progression as tolerated Will have 6 week follow up with Dr. Schuster <Jyothi Schuster MD, FACOG - Last Filed: 06/09/23 08:06> (1) Encounter for assessment: Subjective <Mendel Ivan DO - Last Filed: 06/09/23 07:12> Ambulation: ambulating normally Voiding: no voiding problems Diet Tolerance:: regular diet Lochia:: Moderate Feeding Type:: breast feeding Pain well controlled with Motrin Review of Systems -Denies fever or chills -Denies dyspnea, chest pain, or palpitations -Denies dysuria -Denies headache or changes in vision Physical Exam <Mendel Ivan DO - Last Filed: 06/09/23 07:12> General: Alert and oriented. No acute distress Cardiac: Regular rate and rhythm, no murmurs appreciated Respiratory: Lungs clear to auscultation bilaterally, No increased work of breathing Abdominal: Soft, non-tender, non-distended. Bowel sounds present. Uterus: Uterine fundus firm, palpable below umbilicus Extremities: No lower extremity edema, calves non-tender bilaterally Results & Data <Mendel Ivan DO - Last Filed: 06/09/23 07:12> Vital Signs (Past 12 Hours) Vital Signs Temp Pulse Pulse Pulse Resp BP BP 06/09/23 04:35 36.5 C 80 18 122/78 06/09/23 00:10 36.5 C 68 18 117/76 06/08/23 20:00 36.8 C 82 20 146/79 H 06/08/23 19:32 80 06/08/23 19:32 141/75 H 06/08/23 19:29 78 06/08/23 19:29 164/85 H Pulse Ox O2 Del Method 06/09/23 04:35 Room Air 06/09/23 00:10 Room Air 06/08/23 20:00 97 Room Air 06/08/23 19:32 06/08/23 19:32 06/08/23 19:29 06/08/23 19:29 Supervising Physician <Jyothi Schuster MD, FACOG - Last Filed: 06/09/23 08:06> Co-Signing Physician Notes Resident Physician Supervision Note: I was present with Dr. Ivan during the history and exam. I discussed the case with the resident and agree with the findings and plan as documented in the note. Any exceptions or clarifications are listed here: pt doing well, eating, voiding ambulating. bottle feeding. rhpos, ri. abd soft obest nt ff 2 down. ext nt calves. dc home later today. f/u 6wk pp. will consider mirena iud for control, plans to read about it. Documented By: Jyothi Schuster MD, FACOG Resident Activity Tracking <Mendel Ivan DO - Last Filed: 06/09/23 07:12> Resident Involvement: Resident Care Provided Care Provided: OB Delivery
[2023-06-09] MEDS: DIPHTHER/TETAN/PERTUS Vaccine (Tdap, Adol/Adult) 0.5mL IM ONE (07:29)
[2023-06-09] MEDS: PRENATAL VITAMIN 1 TAB PO SCH (07:43)
[2023-06-09] MEDS ORDERED: bisacodyL 5 MG TABEC PO SCH (20:00)
[2023-06-10 11:17] LABS: Marijuana Quant, GCMS Urine 229 ng/mL (<5)
== END 2023-06-09 18:30 | disposition home or self-care (01) | DRG 807 ==
LOC: 4S1 07:43 → 4E2 20:08